=== PATIENT | male | born 1980 | race Two or more races ===

== ENCOUNTER 2017-02-26 03:04 | Emergency (ER) | payer MEDICAID ==
[~2017-02-26] VITALS: Ht 170.2 cm; Wt 105.2 kg
[2017-02-26] MEDS ORDERED: METFORMIN HCL1000 M1 ORAL (03:14)
[2017-02-26 03:20] VITALS: BP 144/87
--- NOTE | 2017-02-26 03:31 | Emergency Room Report ---
History of Present Illness General Chief Complaint: Dyspnea/Respdistress Source: Patient Present Illness HPI Patient 36-year-old male presented after increased difficulty breathing. Patient reported having increased anxiety. He states that he had recently stopped drinking alcohol. He reported having some epigastric burning sensation. He had not been vomiting. He states that he had been drinking beer up until approximately 1 day prior to arrival. The patient denies any rectal bleeding or hematemesis. He reports having a nonproductive cough Allergies: Coded Allergies: No Known Allergies (Unverified , 02/26/17) Patient History Past Medical History: see triage record Reviewed Nursing Documentation: PMH: Agreed, PSxH: Agreed Nursing Documentation-PMH Hx Diabetes: Yes Review of Systems All Other Systems: negative except mentioned in HPI Physical Exam Vital Signs Date Time Temp Pulse Resp B/P (MAP) Pulse Ox O2 Delivery O2 Flow Rate FiO2 02/26/17 03:07 98.1 85 16 144/87 98 Room Air Sp02 EP Interpretation: reviewed, normal General Appearance: normal inspection, well appearing, no apparent distress, alert, GCS 15 Head: atraumatic ENT: normal ENT inspection, hearing grossly normal, normal voice Neck: normal inspection, full range of motion, supple, no bony tend Respiratory: normal inspection, lungs clear, normal breath sounds, no respiratory distress, no retraction, no wheezing Cardiovascular #1: regular rate, rhythm, no edema Gastrointestinal: normal inspection, normal bowel sounds, non tender, soft, no guarding, no hernia Genitourinary: no CVA tenderness Musculoskeletal: normal inspection, back normal, normal range of motion Neurologic: normal inspection, alert, oriented x3, responsive, 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 Because of complexity of patient' s case laboratory testing and imaging studies were ordered.Laboratory testing was notable for low white blood count. The patient shows no active source of infection this time. The patient was given IV phenobarbital for presumed alcohol withdrawal. The patient is advised to follow up with primary care doctor in 1-2 days. Patient is advised to return if any worsening condition or if any changes in status that are concerning. This report is dictated with [employer] hand stoner software which may occasionally lead to discrepancies related to use of this software. Labs Test 02/26/17 03:50 White Blood Count 2.0 K/UL (4.8-10.8) Red Blood Count 3.93 M/UL (4.70-6.10) Hemoglobin 12.7 G/DL (14.2-18.0) Hematocrit 38.6 % (42.0-52.0) Mean Corpuscular Volume 98 FL (80-99) Mean Corpuscular Hemoglobin 32.2 PG (27.0-31.0) Mean Corpuscular Hemoglobin Concent 32.8 G/DL (32.0-36.0) Red Cell Distribution Width 13.4 % (11.6-14.8) Platelet Count 20 K/UL (150-450) Mean Platelet Volume 10.4 FL (6.5-10.1) Neutrophils (%) (Auto) % (45.0-75.0) Lymphocytes (%) (Auto) % (20.0-45.0) Monocytes (%) (Auto) % (1.0-10.0) Eosinophils (%) (Auto) % (0.0-3.0) Basophils (%) (Auto) % (0.0-2.0) Sodium Level 137 MMOL/L (136-145) Potassium Level 3.6 MMOL/L (3.5-5.1) Chloride Level 103 MMOL/L (98-107) Carbon Dioxide Level 28 MMOL/L (21-32) Anion Gap 7 mmol/L (5-15) Blood Urea Nitrogen 11 mg/dL (7-18) Creatinine 0.8 MG/DL (0.55-1.30) Estimat Glomerular Filtration Rate > 60 mL/min (>60) Glucose Level 198 MG/DL (74-106) Calcium Level 8.6 MG/DL (8.5-10.1) Total Bilirubin 1.5 MG/DL (0.2-1.0) Direct Bilirubin 0.4 MG/DL (0.0-0.3) Aspartate Amino Transf (AST/SGOT) 32 U/L (15-37) Alanine Aminotransferase (ALT/SGPT) 33 U/L (12-78) Alkaline Phosphatase 136 U/L (46-116) Total Protein 7.7 G/DL (6.4-8.2) Albumin 3.0 G/DL (3.4-5.0) Globulin 4.7 g/dL Albumin/Globulin Ratio 0.6 (1.0-2.7) Lipase 129 U/L (73-393) Serum Alcohol < 3 mg/dL EKG Diagnostic Results Rate: normal Rhythm: NSR ST Segments: no acute changes Rhythm Strip Diag. Results EP Interpretation: yes Rhythm: NSR, no PVC's, no ectopy Last Vital Signs Date Time Temp Pulse Resp B/P (MAP) Pulse Ox O2 Delivery O2 Flow Rate FiO2 02/26/17 03:07 98.1 85 16 144/87 98 Room Air Status: improved Disposition: HOME, SELF-CARE Condition: Stable Scripts Omeprazole Magnesium (PRILOSEC) 10 Mg Suspdr.pkt 10 MG ORAL DAILY, #30 PACKET Prov: Steve Lomeli 02/26/17 Referrals: NOT CHOSEN IPA/,REFERRING (PCP) Steve Lomeli Feb 26, 2017 03:31
[2017-02-26 04:01] LABS: MEAN CORPUSCULAR HEMOGLOBIN 32.2 PG (27.0-31.0); MEAN CORPUSCULAR HGB CONC 32.8 G/DL (32.0-36.0); MEAN CORPUSCULAR VOLUME 98 FL (80-99); MEAN PLATELET VOLUME 10.4 FL (6.5-10.1); PLATELET COUNT 20 K/UL (150-450); RED BLOOD COUNT 3.93 M/UL (4.70-6.10); RED CELL DISTRIBUTION WIDTH 13.4 % (11.6-14.8)
[2017-02-26 04:13] LABS: ANION GAP 7 mmol/L (5-15); CALCIUM 8.6 MG/DL (8.5-10.1); CARBON DIOXIDE 28 MMOL/L (21-32); CHLORIDE 103 MMOL/L (98-107); CREATININE 0.8 MG/DL (0.55-1.30); GLOMERULAR FILTRATION RATE > 60 mL/min (>60); POTASSIUM 3.6 MMOL/L (3.5-5.1); SODIUM 137 MMOL/L (136-145)
[2017-02-26 04:24] LABS: ALANINE AMINOTRANSFERASE 33 U/L (12-78); ALBUMIN/GLOBULIN RATIO 0.6 (1.0-2.7); ALCOHOL < 3 mg/dL; ASPARTATE AMINO TRANSFERASE 32 U/L (15-37); TOTAL PROTEIN 7.7 G/DL (6.4-8.2)
[2017-02-26 04:34] LABS: BILIRUBIN,DIRECT 0.4 MG/DL (0.0-0.3)
[2017-02-26 06:00] VITALS: BP 134/91
[2017-02-26] MEDS ORDERED: PRILOSEC10 M1 ORAL (06:02)
--- NOTE | 2017-02-26 18:13 | Cardiology Report ---
APPROVED REPORT EKG Measurement Heart [id number] Normal sinus rhythm Rightward axis Borderline ECG
== END 2017-02-26 06:05 | disposition home or self-care (01) ==
LOC: EMR 03:19
DX: F10.239 Alcohol dependence with withdrawal, unspecified (principal); D72.819 Decreased white blood cell count, unspecified; R06.00 Dyspnea, unspecified; E11.9 Type 2 diabetes mellitus without complications
CPT/HCPCS: 36415; 80053; 80329; 82248; 82962; 83690; 85025; 93005; 96374; 96376; 99284; J2560

== ENCOUNTER 2019-06-23 15:14 | Inpatient (IN) | payer MEDICAID ==
[~2019-06-23] VITALS: Ht 172.7 cm; Wt 93.0 kg
[~2019-06-23 15:14] MED LIST: METFORMIN HCL1000 M1 ORAL; PRILOSEC10 M1 ORAL
--- NOTE | 2019-06-23 15:40 | Emergency Room Report ---
History of Present Illness General Chief Complaint: Upper Respiratory Illness Source: Patient (Staci Conte) Present Illness HPI 38-year-old male with history of type 2 diabetes currently taking medication here complaining of 3 days of fever, cough and congestion shortness of breath. Patient reports that his roommate tested positive for coronavirus. 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 Has an oxygenation of 89% upon arrival and temperature of 102 F. Denies any chest pain or chest pain radiation, dizziness and headache. Denies tobacco smoking marijuana use. Peers to be in mild distress. Denies any wheezing. Denies any recent travel. Has not taken medication for symptom relief. Reports that his roommate was diagnosed with rhinovirus 3 days ago was having symptoms for a week prior to that. Patient started with all of his symptoms 3 days ago. (Staci Conte) Allergies: Coded Allergies: No Known Allergies (Unverified , 02/26/17) COVID-19 Screening Contact w/high risk pt: Yes Recent Travel to affected area: No Experienced COVID-19 symptoms?: Yes COVID-19 symptoms experienced: Cough (Staci Conte) Patient History Past Medical History: see triage record Past Surgical History: none Pertinent Family History: none Immunizations: UTD Reviewed Nursing Documentation: PMH: Agreed; PSxH: Agreed (Staci Conte) Nursing Documentation-PMH Past Medical History: No Stated History Hx Diabetes: Yes (Staci Conte) Review of Systems All Other Systems: negative except mentioned in HPI (Staci Conte) Physical Exam Vital Signs Date Time Temp Pulse Resp B/P (MAP) Pulse Ox O2 Delivery O2 Flow Rate FiO2 06/23/19 14:59 102.7 115 21 114/63 (80) 89 Room Air Sp02 EP Interpretation: abnormal - Elevated temperature and low o2 stat General Appearance: alert, non-toxic, mild distress Head: normocephalic, atraumatic Eyes: bilateral eye normal inspection, bilateral eye PERRL ENT: hearing grossly normal, normal pharynx, no angioedema, normal voice Neck: full range of motion, supple, thyroid normal Respiratory: chest non-tender, lungs clear, no rhonchi, no retraction, no wheezing Cardiovascular #1: regular rate, rhythm, no edema Gastrointestinal: non tender, soft Rectal: deferred Genitourinary: no CVA tenderness Neurologic: alert, motor strength/tone normal, oriented x3, sensory intact, responsive, speech normal Psychiatric: judgement/insight normal, memory normal, mood/affect normal, no suicidal/homicidal ideation Skin: no rash Lymphatic: no adenopathy (Staci Conte) Medical Decision Making PA Attestation All my diagnosis and treatment plans were reviewed ad discussed with my supervising physician Dr. Caba (Staci Conte) Diagnostic Impression: Primary Impression: Suspected COVID-19 virus infection Additional Impression: Pneumonia ER Course 38-year-old male with history of type 2 diabetes currently taking medication here complaining of 3 days of fever, cough and congestion shortness of breath. Patient reports that his roommate tested positive for coronavirus. 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 Has an oxygenation of 89% upon arrival and temperature of 102 F. Denies any chest pain or chest pain radiation, dizziness and headache. Denies tobacco smoking marijuana use. Peers to be in mild distress. Denies any wheezing. Denies any recent travel. Has not taken medication for symptom relief. Reports that his roommate was diagnosed with rhinovirus 3 days ago was having symptoms for a week prior to that. Patient started with all of his symptoms 3 days ago. Ddx considered but are not limited to: Coronavirus, ARDS, respiratory distress, bronchitis, PNA, URI viral, bacterial bronchitis Vital signs: are WNL, pt. is febrile H&PE are most consistent with: Coronavirus rule out respiratory distress ORDERS: Sepsis order set ED INTERVENTIONS: Oxygen, NS bolus Patient was admitted with diagnosis of COVID rule out hypoxia to Dr. Hobson under supervision of : Rosales pt stable at time of admission (Staci Conte) ER Course This patient was boarding in the emergency department during my shift. The patient had been admitted the previous evening with presumptive COVID-19 and pneumonia. The patient was in isolation on droplet precautions. The patient at one point did have significant tachypnea. I had the patient prone himself and he had significant improvement in his tachypnea. He maintained his oxygen saturations in the mid to high 90s during the care he received by myself during my shift. The patient is still pending bed availability. This patient was evaluated in the context of the global COVID-19 pandemic, which necessitated consideration that the patient might be at risk for infection with the [id number] virus that causes COVID-19. Institutional protocols in a log rhythms that pertain to the evaluation of patients at risk for COVID-19 and the state of rapid change based on information released by multiple regulatory bodies including the CDC and federal and state organizations. These policies and algorithms were followed during the patient' s care in the ED. (Chandni Baltazar DO) EKG Diagnostic Results Rate: tachycardiac Rhythm: other - tachy ST Segments: no acute changes Other Impression No acute ST changes (Staci Conte) Chest X-Ray Diagnostic Results Chest X-Ray Diagnostic Results : Chest X-Ray Ordered: Yes # of Views/Limited/Complete: 1 View Indication: Shortness of Breath EP Interpretation: Yes PA Xray: Interpretation reviewed, by supervising MD, and agrees with findings. Interpretation: other - Diffuse infiltrates Impression: Other - Diffuse infiltrates most likely COVID pneumonia Electronically Signed by: Staci Mendez PA-C (Staci Conte) Last Vital Signs Date Time Temp Pulse Resp B/P (MAP) Pulse Ox O2 Delivery O2 Flow Rate FiO2 06/23/19 14:59 102.7 115 21 114/63 (80) 89 Room Air (Staci Conte) Disposition: ADMITTED INPATIENT Condition: Stable Referrals: NOT CHOSEN IPA/,REFERRING (PCP) Staci Conte Jun 23, 2019 15:40 Chandni Baltazar DO Jun 24, 2019 13:31
[2019-06-23 16:01] VITALS: BP 119/65
[2019-06-23 16:27] LABS: INR 1.2 (0.9-1.1)
[2019-06-23 16:28] LABS: ANION GAP 10 mmol/L (5-15); BLOOD UREA NITROGEN 13 mg/dL (7-18); CALCIUM 8.3 MG/DL (8.5-10.1); CARBON DIOXIDE 25 MMOL/L (21-32); CHLORIDE 102 MMOL/L (98-107); POTASSIUM 3.7 MMOL/L (3.5-5.1); SODIUM 137 MMOL/L (136-145)
[2019-06-23] MEDS ORDERED: Azithromycin 500 MG in NS 275 ML IV ONE (16:30)
[2019-06-23] MEDS ORDERED: cefTRIAXone 1 GM in NS 55 ML IVPB ONE (16:30)
[2019-06-23] MEDS ORDERED: Azithromycin 250mg tab ORAL ONE (16:30)
[2019-06-23 16:44] LABS: ALANINE AMINOTRANSFERASE 41 U/L (12-78); ALBUMIN 2.7 G/DL (3.4-5.0); ALBUMIN/GLOBULIN RATIO 0.6 (1.0-2.7); ALKALINE PHOSPHATASE 138 U/L (46-116); ASPARTATE AMINO TRANSFERASE 73 U/L (15-37); BILIRUBIN,TOTAL 1.1 MG/DL (0.2-1.0); CKMB < 0.5 NG/ML (0.0-3.6); CREATINE KINASE 324 U/L (26-308)
[2019-06-23 16:45] LABS: BILIRUBIN,DIRECT 0.6 MG/DL (0.0-0.3)
--- NOTE | 2019-06-23 16:48 | Diagnostic Imaging Report ---
Indication: Shortness of breath Technique: One view of the chest Comparison: none Findings: There are bilateral mid and lower lung mostly peripheral infiltrates, with some medial patchy infiltrates also seen on the right heart size is upper limits normal. No effusions. Impression: Bilateral infiltrates, likely pneumonia. Correlate with clinical findings
[2019-06-23 16:49] LABS: APPEARANCE,URINE CLEAR; BILIRUBIN, URINE 1+ (NEGATIVE); GLUCOSE, URINE (UA) NEGATIVE (NEGATIVE); KETONES,URINE 2+ (NEGATIVE); LEUKOCYTE ESTERASE ,URINE 1+ (NEGATIVE); NITRITE,URINE POSITIVE (NEGATIVE); PH,URINE 6 (4.5-8.0); PROTEIN,URINE 2+ (NEGATIVE); UROBILINOGEN,URINE 8 MG/DL (0.0-1.0)
[2019-06-23 17:06] LABS: HEMATOCRIT 35.1 % (42.0-52.0); HEMOGLOBIN 11.3 G/DL (14.2-18.0); MEAN CORPUSCULAR VOLUME 97 FL (80-99); PLATELET COUNT 13 K/UL (150-450); RED BLOOD COUNT 3.61 M/UL (4.70-6.10); RED CELL DISTRIBUTION WIDTH 14.2 % (11.6-14.8); WHITE BLOOD COUNT 2.2 K/UL (4.8-10.8)
[2019-06-23 17:08] LABS: COLOR,URINE YELLOW
[2019-06-23 18:00] VITALS: BP 129/67
[2019-06-23 21:30] VITALS: BP 101/54
[2019-06-23 23:40] VITALS: BP 106/64
[2019-06-24] VITALS (11 sets, daily range): BP systolic 97–132; BP diastolic 58–92
[2019-06-24] MEDS ORDERED: Acetaminophen 500mg (ES) tab ORAL PRN (00:45)
[2019-06-24] MEDS ORDERED: Hydroxychloroquine Fact Sheet MISC SCH (12:00)
[2019-06-24] MEDS ORDERED: cefTRIAXone 1 GM in NS 55 ML IVPB SCH ×2 (12:15→13:02)
[2019-06-24] MEDS ORDERED: Azithromycin 250mg tab ORAL SCH (12:15)
--- NOTE | 2019-06-24 14:27 | Consultation ---
History of Present Illness General Chief Complaint: Upper Respiratory Illness Present Illness Allergies: Coded Allergies: No Known Allergies (Unverified , 02/26/17) Medication History Scheduled Metformin Hcl* (Metformin Hcl*), 1,000 MG ORAL DAILY, (Reported) Omeprazole Magnesium (Prilosec), 10 MG ORAL DAILY Patient History Healthcare decision maker Resuscitation status Advanced Directive on File Physical Exam Last 24 Hour Vital Signs Date Time Temp Pulse Resp B/P (MAP) Pulse Ox O2 Delivery O2 Flow Rate FiO2 06/24/19 13:00 91 37 107/89 100 Nasal Cannula 2.0 06/24/19 11:45 99.0 93 38 111/90 100 Nasal Cannula 2.0 06/24/19 10:00 99.0 93 34 108/91 100 Nasal Cannula 2.0 06/24/19 08:00 99.2 92 21 97/92 100 Nasal Cannula 2.0 06/24/19 07:00 99.5 91 32 114/70 96 Nasal Cannula 2.0 06/24/19 06:30 86 25 117/73 97 Nasal Cannula 2.0 06/24/19 04:30 100.1 98 30 101/58 97 Nasal Cannula 2.0 06/24/19 02:30 100.1 06/24/19 01:40 101.1 100 30 119/74 96 Nasal Cannula 2.0 06/23/19 23:40 100.0 97 27 106/64 97 Nasal Cannula 2.0 06/23/19 21:30 100.9 96 25 101/54 96 Nasal Cannula 2.0 06/23/19 18:00 101.9 112 26 129/67 97 Nasal Cannula 2.0 06/23/19 16:10 102.0 06/23/19 16:01 102.6 115 26 119/65 94 Room Air 06/23/19 16:01 115 21 Room Air 06/23/19 14:59 102.7 115 21 114/63 (80) 89 Room Air Laboratory Tests Test 06/23/19 15:35 06/23/19 15:40 06/23/19 15:50 06/23/19 16:45 Prothrombin Time 12.7 SEC (9.30-11.50) H Prothromb Time International Ratio 1.2 (0.9-1.1) H Activated Partial Thromboplast Time 34 SEC (23-33) H Sodium Level 137 MMOL/L (136-145) Potassium Level 3.7 MMOL/L (3.5-5.1) Chloride Level 102 MMOL/L (98-107) Carbon Dioxide Level 25 MMOL/L (21-32) Anion Gap 10 mmol/L (5-15) Blood Urea Nitrogen 13 mg/dL (7-18) Creatinine 1.0 MG/DL (0.55-1.30) Estimat Glomerular Filtration Rate > 60 mL/min (>60) Glucose Level 128 MG/DL (74-106) H Lactic Acid Level 2.00 mmol/L (0.4-2.0) Calcium Level 8.3 MG/DL (8.5-10.1) L Total Bilirubin 1.1 MG/DL (0.2-1.0) H Direct Bilirubin 0.6 MG/DL (0.0-0.3) H Aspartate Amino Transf (AST/SGOT) 73 U/L (15-37) H Alanine Aminotransferase (ALT/SGPT) 41 U/L (12-78) Alkaline Phosphatase 138 U/L (46-116) H Total Creatine Kinase 324 U/L (26-308) H Creatine Kinase MB < 0.5 NG/ML (0.0-3.6) Creatine Kinase MB Relative Index 0.1 Troponin I 0.046 ng/mL (0.000-0.056) Pro-B-Type Natriuretic Peptide 25 pg/mL (0-125) Total Protein 7.5 G/DL (6.4-8.2) Albumin 2.7 G/DL (3.4-5.0) L Globulin 4.8 g/dL Albumin/Globulin Ratio 0.6 (1.0-2.7) L Arterial Blood pH 7.502 (7.350-7.450) Arterial Blood Partial Pressure CO2 26.8 mmHg (35.0-45.0) L Arterial Blood Partial Pressure O2 58.0 mmHg (75.0-100.0) L Arterial Blood HCO3 20.5 mmol/L (22.0-26.0) L Arterial Blood Oxygen Saturation 92.5 % (95-100) L Arterial Blood Base Excess -1.3 (-2-2) [place] Test Positive Urine Color Yellow Urine Appearance Clear Urine pH 6 (4.5-8.0) Urine Specific [place] 1.015 (1.005-1.035) Urine Protein 2+ (NEGATIVE) H Urine Glucose (UA) Negative (NEGATIVE) Urine Ketones 2+ (NEGATIVE) H Urine Blood 1+ (NEGATIVE) H Urine Nitrite Positive (NEGATIVE) H Urine Bilirubin 1+ (NEGATIVE) H Urine Ictotest Negative (NEGATIVE) Urine Urobilinogen 8 MG/DL (0.0-1.0) H Urine Leukocyte Esterase 1+ (NEGATIVE) H Urine RBC 2-4 /HPF (0 - 0) H Urine WBC 5-10 /HPF (0 - 0) H Urine Squamous Epithelial Cells None /LPF (NONE/OCC) Urine Bacteria Many /HPF (NONE) H Urine Opiates Screen Negative (NEGATIVE) Urine Barbiturates Screen Negative (NEGATIVE) Phencyclidine (PCP) Screen Negative (NEGATIVE) Urine Amphetamines Screen Negative (NEGATIVE) Urine Benzodiazepines Screen Negative (NEGATIVE) Urine Cocaine Screen Negative (NEGATIVE) Urine Marijuana (THC) Screen Negative (NEGATIVE) White Blood Count 2.2 K/UL (4.8-10.8) L Red Blood Count 3.61 M/UL (4.70-6.10) L Hemoglobin 11.3 G/DL (14.2-18.0) L Hematocrit 35.1 % (42.0-52.0) L Mean Corpuscular Volume 97 FL (80-99) Mean Corpuscular Hemoglobin 31.3 PG (27.0-31.0) H Mean Corpuscular Hemoglobin Concent 32.2 G/DL (32.0-36.0) Red Cell Distribution Width 14.2 % (11.6-14.8) Platelet Count 13 K/UL (150-450) L Mean Platelet Volume 12.1 FL (6.5-10.1) H Neutrophils (%) (Auto) % (45.0-75.0) Lymphocytes (%) (Auto) % (20.0-45.0) Monocytes (%) (Auto) % (1.0-10.0) Eosinophils (%) (Auto) % (0.0-3.0) Basophils (%) (Auto) % (0.0-2.0) Differential Total Cells Counted 100 Neutrophils % (Manual) 84 % (45-75) H Lymphocytes % (Manual) 14 % (20-45) L Monocytes % (Manual) 2 % (1-10) Eosinophils % (Manual) 0 % (0-3) Basophils % (Manual) 0 % (0-2) Band Neutrophils 0 % (0-8) Platelet Estimate Decreased L Platelet Morphology Normal Hypochromasia 1+ Anisocytosis Macrocytosis 1+ Test 06/24/19 04:00 Troponin I 0.049 ng/mL (0.000-0.056) C-Reactive Protein, Quantitative 12.9 mg/dL (0.00-0.90) H Microbiology Date/Time Source Procedure Growth Status 06/23/19 15:35 Nasal Nares - Final Complete 06/23/19 15:35 Nasal Nares - Final Complete 06/23/19 15:50 Urine,Clean Catch Urine Culture - Preliminary NO GROWTH Resulted Height (Feet): 5 Height (Inches): 8.00 Weight (Pounds): 232 Medications Current Medications Medications (Trade) Dose Ordered Sig/Quynh Route PRN Reason Start Time Stop Time Status Last Admin Dose Admin Acetaminophen (Tylenol) 650 mg Q4H PRN ORAL Mild Pain (Pain Scale 1-3) 06/24/19 12:00 07/24/19 11:59 Azithromycin 500 mg/Dextrose 275 ml @ 275 mls/hr Q24H IV 06/24/19 14:00 06/29/19 13:59 Ceftriaxone Sodium 1 gm/ Sodium Chloride 55 ml @ 110 mls/hr ONCE IVPB 06/24/19 13:02 06/24/19 23:59 Heparin Sodium (Porcine) (Heparin 5000 units/ml) 5,000 units EVERY 12 HOURS SUBQ 06/24/19 21:00 08/08/19 20:59 UNV Hydroxychloroquine Sulfate (Plaquenil) 200 mg BID ORAL 06/25/19 09:00 06/28/19 18:01 Hydroxychloroquine Sulfate (Plaquenil) 400 mg BID ORAL 06/24/19 12:30 06/24/19 21:01 Miscellaneous Medication (Plaquenil Fact Sheet) 1 ea ONCE MISC 06/24/19 12:00 06/24/19 18:01 Potassium Chloride/Sodium Chloride 1,000 ml @ 50 mls/hr Q20H IV 06/24/19 13:00 07/24/19 12:59 Assessment/Plan Assessment/Plan: Hematology Consultation REQ : Eitan Hobson RFC: Low plts and Pancytopenia DOS: 06/24/2019 HPI 38-year-old male with history of type 2 diabetes currently taking medication here complaining of 3 days of fever, cough and congestion shortness of breath. Patient reports that his roommate tested positive for coronavirus. 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 Has an oxygenation of 89% upon arrival and temperature of 102 F. Denies any chest pain or chest pain radiation, dizziness and headache. Denies tobacco smoking marijuana use. Peers to be in mild distress. Denies any wheezing. Denies any recent travel. Has not taken medication for symptom relief. Reports that his roommate was diagnosed with rhinovirus 3 days ago was having symptoms for a week prior to that. Patient started with all of his symptoms 3 days ago. Has severly low plts and coagulopathy and heme consulted to martine r/o chela as well Coded Allergies: No Known Allergies (Unverified , 02/26/17) COVID-19 Screening Contact w/high risk pt: Yes Recent Travel to affected area: No Experienced COVID-19 symptoms?: Yes COVID-19 symptoms experienced: Cough Patient History Past Medical History: see triage record Past Surgical History: none Pertinent Family History: none Immunizations: UTD Reviewed Nursing Documentation: PMH: Agreed; PSxH: Agreed Nursing Documentation-PMH Past Medical History: No Stated History Hx Diabetes: Yes ROS (review of systems): Constitutional: No fever, no chills, no night sweats, no fatigue Skin: No rashes, lumps, itchiness, dryness HEENT: No LATIF, ear ache, visual changes, double vision, nosebleeds Breasts: No lumps, pain, discharge Pulmonary: No cough, sputum, shortness of breath, coughing up blood Cardiovascular: No chest pain, tightness, palpitations, syncope, PND GI: No nausea, vomiting, diarrhea, melena, hematochezia, change in appetite, : No dysuria, frequency, urgency, urinary incontinence, foamy urine Musculoskeletal: No joint swelling or muscle pain, trauma, back pain Neurologic: No dizziness, fainting, seizures, changes in smell or taste Psychiatric: No nervousness, stress, or depression, anxiety, hallucinations Endocrine: No weight change, heat or cold intolerance, tremor, insomnia Physical Exam: Vitals: reviewed General: NAD HEENT: nc, at Neck: supple Chest: clear breath sounds bilaterally ++ rhonchi Cardiovascular: RRR, no s3, s4 Neuro: alert and oriented Labs: noted Imaging: reviewed Assessment and Recs: # Pancytopenia -- multiple etiologies could be related to underlying liver disease, medication-induced, infection versus viral syndrome versus underlying bone marrow cause, GIVEn coagulopathy concern for liver disease --> peripheral smear has been ordered and does not show significant abnormalities --> Medications have been reviewed --> Continue to monitor for improvement, trend cbc --> Hep panel and HIV have been ordered --> US abd ordered to r/o cirrhosis and hepatosplenomegaly --> reverse isolation if ANC is <2000 --> Give neupogen if ANC <1000 --> Transfuse if hgb <7, with 1 unit prbc --> consider bone marrow biopsy if no other causes are found # Anemia of chronic disease v myeosuppression --> hx of dm 2 as well, poorly controlled -> trend hgb as needed # Pneumonia --> per id r/o cpvid 19 --> hypoxemia --> roommate tested ++ for covid19 # Tachypenia with cxr --> Diffuse infiltrates most likely COVID pneumonia # Tachycardia likely dehydrated The timing of this note does not necessarily reflect the time of the patient was seen. Greatly appreciate consultation. Johan Melvin MD Jun 24, 2019 14:27
[2019-06-24] MEDS: Azithromycin 500 MG in D5W 275 ML IV SCH (16:14)
[2019-06-24] MEDS: NS w/KCl 20mEq 1000ml 1,000 ML IV SCH (17:33)
--- NOTE | 2019-06-24 19:14 | Consultation ---
DATE OF CONSULTATION: 06/24/2019 INFECTIOUS DISEASE CONSULTATION CONSULTING PHYSICIAN: Edmund Butler M.D. PRIMARY ATTENDING: Eitan Sharp M.D. REASON FOR CONSULT: Pneumonia, suspected COVID-19 disease. HISTORY OF PRESENT ILLNESS: This is a 38-year-old male admitted yesterday from home complaining of fever, cough, shortness of breath for 3 days before admission. The patient had a fever of 102 at the time of admission, decrease in O2 saturation to 89. His roommate was diagnosed with common cold 3 days ago and has symptoms for a week prior to that. PAST MEDICAL HISTORY: Significant for diabetes mellitus. MEDICATIONS: Sodium chloride and Tylenol. Got a dose of ceftriaxone and azithromycin yesterday. SOCIAL HISTORY: . Denies alcohol, drug abuse, or smoking. REVIEW OF SYSTEMS: Very limited. Has fever, dry cough, shortness of breath. PHYSICAL EXAMINATION: VITAL SIGNS: T-max 102.7, current temperature 99, pulse 93, blood pressure 108/91. GENERAL APPEARANCE: No acute distress. Overweight. HEAD AND NECK: [place] conjunctivae. HEART: Normal rate. LUNGS: Clear. ABDOMEN: Soft and nontender. EXTREMITIES: No edema. NEUROLOGIC: He is awake, alert, responsive. LABORATORY AND DIAGNOSTIC DATA: Sodium 137, potassium 3.7, chloride 102, bicarbonate 25, BUN 13, creatinine 1, glucose 128. Bilirubin 1.9, AST elevated, alkaline phosphatase is 138. CK is elevated at 324. Urine toxicology was negative. Blood gas showed hypoxemia with pO2 58, pCO2 26.8, bicarbonate 20.5. Chest x-ray showed bilateral infiltrates, likely pneumonia. IMPRESSION: Sepsis with tachycardia, fever, leukopenia. Patient has pneumonia, highly suspected of COVID-19. Has hypoxemic respiratory failure, diabetes mellitus. RECOMMENDATION: Continue with ceftriaxone and Zithromax. If the patient signs consent for use of hydroxychloroquine, we would give the patient hydroxychloroquine. At the end of my exam, I thank Dr. Sharp for involving me in the care of this patient. Edmund Butler M.D. DR: JESUS JOB#: [id number] CC: LUIS
--- NOTE | 2019-06-24 20:14 | Consultation ---
DATE OF CONSULTATION: 06/24/2019 PULMONARY CONSULTATION CONSULTING PHYSICIAN: Philip Ayon MD. HISTORY OF PRESENT ILLNESS: This is a 38-year-old male with history of diabetes mellitus, who came to the hospital with fever, cough, and chest congestion. He states that his roommate has tested positive for COVID-19. 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 The patient was hypoxic, but currently is saturating 94% on 2 L of oxygen. He was also febrile. The patient denies tobacco, marijuana, or alcohol usage. He denies any other medical conditions. He also reports that another roommate had a [id number] test positive as well. PAST MEDICAL HISTORY: Diabetes mellitus. ALLERGIES: None. PREVIOUS SURGERIES: None. HOME MEDICATIONS: None reported. REVIEW OF SYSTEMS: Denies any headaches, hematemesis, melena, or hematochezia. PHYSICAL EXAMINATION: GENERAL: Reveals a 38-year-old male. HEENT: Unremarkable. CHEST: Shows decreased breath sounds bilaterally. HEART: Normal heart sounds. ABDOMEN: Soft. EXTREMITIES: There is no edema. NEUROLOGIC: Nonfocal. PHYSICAL EXAMINATION: Vital signs show blood pressure of 110/90, heart rate is 94, respirations are 18, O2 saturation 100% on 2 L of oxygen, respirations are 28. LABORATORY AND DIAGNOSTIC DATA: X-ray of chest shows bilateral infiltrates suspicious for pneumonia. Lab results show white count 2.2, hemoglobin 11.3. Chemistries are unremarkable except glucose of 128. IMPRESSION: 1. Diabetes mellitus. 2. Bilateral pneumonia. 3. Suspect COVID-19 pneumonia. 4. Hypoxemia. DISCUSSION: Admit to the hospital. We will recommend initiation of treatment with fluid, azithromycin, and Plaquenil. Needs oxygen therapy. We will follow carefully. Continue isolation. Philip Ayon M.D. DR: Christin JOB#: [id number] CC:
[2019-06-24] MEDS ORDERED: Heparin 5000 units/ml inj SUBQ SCH (21:00)
[2019-06-25] VITALS: BP 106/69
--- NOTE | 2019-06-25 02:45 | History and Physical Report ---
DATE OF ADMISSION: 06/23/2019 HISTORY OF PRESENT ILLNESS: The patient looks very much like he has COVID on the x-ray with bilateral pneumonia, shortness of breath, and cough. Apparently, he has history of alcohol abuse in the past, has hypoxia, also has history of pancytopenia. COVID test was sent and admitted to the monitored bed. The patient has a couple days of fever, cough, congestion, and shortness of breath. Roommate is positive for coronavirus. He was hypoxic, had a temperature of 102. Denies any chest pain. Does have shortness of breath, weakness and fatigue and also cough. He is admitted to rule out COVID, known for pneumonia. PAST MEDICAL HISTORY: History of diabetes and possible history of alcohol abuse, GERD. MEDICATION: Metformin and omeprazole. ALLERGIES: No known allergies. PAST SURGICAL HISTORY: None. FAMILY HISTORY: Noncontributory. SOCIAL HISTORY: Denies history of smoking. Does history of drug abuse. Does have history of alcohol abuse. REVIEW OF SYSTEMS: HEENT: Denies headaches. Respiratory: Does have shortness of breath and cough for couple of days, and fever and chills as well. Gastrointestinal: Reports occasional heartburn. Extremities: Denies pain. BAIL AGENT: Denies change in speech pattern. Feels weak. PHYSICAL EXAMINATION: VITAL SIGNS: Temperature is 101.9, pulse is 106, blood pressure 132/74. HEENT: PERRLA. NECK: Supple. CHEST: Bibasilar rhonchi. CARDIOVASCULAR: Tachycardic. GASTROINTESTINAL: Soft. Positive bowel sounds. No organomegaly. EXTREMITIES: No edema. Reflexes are equal on both sides. Moves all four extremities. NEUROLOGIC: Generalized weakness. LABORATORY AND DIAGNOSTIC DATA: WBC of 2.2, hemoglobin 11.3, platelets of 13. ASSESSMENT AND PLAN: Patient looks very much like has COVID and was admitted to the monitored bed for rule out COVID pneumonia. We will wait for the swab result. Pancytopenia, respiratory insufficiency, pneumonia. I have consulted Dr. Johan Melvin, Dr. Philip Ayon, and Dr. Edmund Butler, for the management of the above-mentioned abnormalities and symptoms. Antibiotics per Dr. Edmund Butler. Again, this looks very much like the patient has COVID clinically. Ali Uriel Sharp DR: Kizzy JOB#: [id number] CC:
[2019-06-25 04:00] VITALS: BP 112/67
[2019-06-25 05:54] LABS: HEMOGLOBIN 11.2 G/DL (14.2-18.0); MEAN CORPUSCULAR VOLUME 92 FL (80-99); PLATELET COUNT 12 K/UL (150-450); RED BLOOD COUNT 3.46 M/UL (4.70-6.10); RED CELL DISTRIBUTION WIDTH 12.8 % (11.6-14.8)
[2019-06-25 06:24] LABS: WHITE BLOOD COUNT 1.9 K/UL (4.8-10.8)
[2019-06-25 06:27] LABS: ALANINE AMINOTRANSFERASE 26 U/L (12-78); ALBUMIN/GLOBULIN RATIO 0.5 (1.0-2.7); ALKALINE PHOSPHATASE 108 U/L (46-116); ANION GAP 6 mmol/L (5-15); ASPARTATE AMINO TRANSFERASE 55 U/L (15-37); BLOOD UREA NITROGEN 10 mg/dL (7-18); CALCIUM 7.7 MG/DL (8.5-10.1); CARBON DIOXIDE 25 MMOL/L (21-32); CHLORIDE 105 MMOL/L (98-107); CREATININE 0.7 MG/DL (0.55-1.30); POTASSIUM 3.8 MMOL/L (3.5-5.1); SODIUM 136 MMOL/L (136-145)
[2019-06-25 07:44] VITALS: BP 105/69
--- NOTE | 2019-06-25 10:44 | Infectious Diseases Prog Note ---
Assessment/Plan Assessment/Plan IMPRESSION: Sepsis with tachycardia, fever, leukopenia. Pneumonia with COVID-19. Hypoxemic respiratory failure, Diabetes mellitus. RECOMMENDATION: Continue with Hydroxychloroquine and Zithromax Check HIV status Subjective ROS Limited/Unobtainable: Yes Constitutional: Denies: fever Respiratory: Reports: dry cough, other - decreased Allergies: Coded Allergies: No Known Allergies (Unverified , 02/26/17) Objective Vital Signs Last 24 Hour Vital Signs Date Time Temp Pulse Resp B/P (MAP) Pulse Ox O2 Delivery O2 Flow Rate FiO2 06/25/19 07:44 98.1 84 21 105/69 (81) 90 06/25/19 07:44 84 06/25/19 04:00 99.6 99 22 112/67 (82) 92 06/25/19 04:00 94 06/25/19 04:00 40 06/25/19 00:00 89 06/25/19 00:00 99.1 92 18 106/69 (81) 92 06/25/19 00:00 40 06/24/19 21:00 Venturi Mask 8.0 06/24/19 20:00 98 06/24/19 20:00 3.0 06/24/19 19:40 Nasal Cannula 2.0 06/24/19 19:12 99.0 98 18 132/88 (103) 95 06/24/19 18:30 99.7 104 18 118/76 99 Room Air 06/24/19 17:30 100.7 107 103/70 94 Nasal Cannula 2.0 06/24/19 16:30 101.9 106 40 122/74 94 Nasal Cannula 2.0 06/24/19 13:00 91 37 107/89 100 Nasal Cannula 2.0 06/24/19 11:45 99.0 93 38 111/90 100 Nasal Cannula 2.0 Height (Feet): 5 Height (Inches): 8.00 Weight (Pounds): 205 General Appearance: no acute distress HEENT: mucous membranes moist Respiratory/Chest: lungs clear, other - oxygen by mask Cardiovascular: normal rate Abdomen: soft, non tender Extremities: no edema Neurologic/Psychiatric: alert, oriented x 3, responsive Microbiology Date/Time Source Procedure Growth Status 06/23/19 15:45 Blood Blood Culture - Preliminary NO GROWTH AFTER 24 HOURS Resulted 4/14/20 15:30 Blood Blood Culture - Preliminary NO GROWTH AFTER 24 HOURS Resulted 06/23/19 15:35 Nasopharynx Coronavirus COVID-19 PCR ([facility]) - Final Complete 06/23/19 15:35 Nasal Nares - Final Complete 06/23/19 15:35 Nasal Nares - Final Complete 06/23/19 15:50 Urine,Clean Catch Urine Culture - Preliminary Mixed Gram Positive Organism Resulted Laboratory Tests Test 06/25/19 04:20 White Blood Count 1.9 K/UL (4.8-10.8) *L Red Blood Count 3.46 M/UL (4.70-6.10) L Hemoglobin 11.2 G/DL (14.2-18.0) L Hematocrit 32.0 % (42.0-52.0) L Mean Corpuscular Volume 92 FL (80-99) Mean Corpuscular Hemoglobin 32.3 PG (27.0-31.0) H Mean Corpuscular Hemoglobin Concent 35.0 G/DL (32.0-36.0) Red Cell Distribution Width 12.8 % (11.6-14.8) Platelet Count 12 K/UL (150-450) L Mean Platelet Volume 12.6 FL (6.5-10.1) H Neutrophils (%) (Auto) % (45.0-75.0) Lymphocytes (%) (Auto) % (20.0-45.0) Monocytes (%) (Auto) % (1.0-10.0) Eosinophils (%) (Auto) % (0.0-3.0) Basophils (%) (Auto) % (0.0-2.0) Differential Total Cells Counted 100 Neutrophils % (Manual) 71 % (45-75) Lymphocytes % (Manual) 24 % (20-45) Monocytes % (Manual) 5 % (1-10) Eosinophils % (Manual) 0 % (0-3) Basophils % (Manual) 0 % (0-2) Band Neutrophils 0 % (0-8) Platelet Estimate Decreased L Platelet Morphology Normal Hypochromasia 1+ Anisocytosis 1+ Sodium Level 136 MMOL/L (136-145) Potassium Level 3.8 MMOL/L (3.5-5.1) Chloride Level 105 MMOL/L (98-107) Carbon Dioxide Level 25 MMOL/L (21-32) Anion Gap 6 mmol/L (5-15) Blood Urea Nitrogen 10 mg/dL (7-18) Creatinine 0.7 MG/DL (0.55-1.30) Estimat Glomerular Filtration Rate > 60 mL/min (>60) Glucose Level 131 MG/DL (74-106) H Calcium Level 7.7 MG/DL (8.5-10.1) L Total Bilirubin 1.0 MG/DL (0.2-1.0) Aspartate Amino Transf (AST/SGOT) 55 U/L (15-37) H Alanine Aminotransferase (ALT/SGPT) 26 U/L (12-78) Alkaline Phosphatase 108 U/L (46-116) Total Protein 6.1 G/DL (6.4-8.2) L Albumin 2.0 G/DL (3.4-5.0) L Globulin 4.1 g/dL Albumin/Globulin Ratio 0.5 (1.0-2.7) L Current Medications Medications (Trade) Dose Ordered Sig/Quynh Route PRN Reason Start Time Stop Time Status Last Admin Dose Admin Acetaminophen (Tylenol) 650 mg Q4H PRN ORAL Mild Pain (Pain Scale 1-3) 06/24/19 12:00 07/24/19 11:59 06/25/19 06:32 Azithromycin 500 mg/Dextrose 275 ml @ 275 mls/hr Q24H IV 06/24/19 14:00 06/29/19 13:59 06/24/19 16:14 Hydroxychloroquine Sulfate (Plaquenil) 200 mg BID ORAL 06/25/19 09:00 06/28/19 18:01 06/25/19 08:20 Potassium Chloride/Sodium Chloride 1,000 ml @ 50 mls/hr Q20H IV 06/24/19 13:00 07/24/19 12:59 06/24/19 17:33 Edmund Butler MD Jun 25, 2019 10:44
--- NOTE | 2019-06-25 11:26 | Hematology/Onc Progress Note ---
Assessment/Plan Assessment/Plan Assessment and Recs: # Pancytopenia -- multiple etiologies could be related to underlying liver disease, medication-induced, infection versus viral syndrome versus underlying bone marrow cause, GIVEn coagulopathy concern for liver disease/ETOH also COVID+ + --> peripheral smear has been ordered and does not show significant abnormalities --> Medications have been reviewed --> Continue to monitor for improvement, trend cbc --> Hep panel and HIV have been ordered --> US abd ordered to r/o cirrhosis and hepatosplenomegaly --> reverse isolation if ANC is <2000 --> Give neupogen if ANC <1000 --> Transfuse if hgb <7, with 1 unit prbc --> consider bone marrow biopsy if no other causes are found --> FFP and platelets ordered --> plt trend 13-->12 # Coagulopathy is related to underlying liver disease --> consider vitk 10mg sq # Anemia of chronic disease v myeosuppression --> hx of dm 2 as well, poorly controlled -> trend hgb as needed # Pneumonia --> per id r/o cpvid 19 --> hypoxemia --> roommate tested ++ for covid19 # Tachypenia with cxr --> Diffuse infiltrates most likely COVID pneumonia # Tachycardia likely dehydrated The timing of this note does not necessarily reflect the time of the patient was seen. Greatly appreciate consultation. Subjective Constitutional: Denies: no symptoms, chills, fever, malaise, weakness, other HEENT: Denies: no symptoms, eye pain, blurred vision, tearing, double vision, ear pain, ear discharge, nose pain, nose congestion, throat pain, throat swelling, mouth pain, mouth swelling, other Cardiovascular: Denies: no symptoms, chest pain, edema, irregular heart rate, lightheadedness, palpitations, syncope, other Respiratory: Denies: no symptoms, cough, shortness of breath, SOB with excertion, SOB at rest, sputum, wheezing, other Gastrointestinal/Abdominal: Denies: no symptoms, abdomen distended, abdominal pain, black stools, tarry stools, blood in stool, constipated, diarrhea, difficulty swallowing, nausea, poor appetite, poor fluid intake, rectal bleeding , vomiting, other Genitourinary: Denies: no symptoms, burning, discharge, frequency, flank pain, hematuria, incontinence, pain, urgency, other Neurologic/Psychiatric: Denies: no symptoms, anxiety, depressed, emotional problems, headache, numbness, paresthesia, pre-existing deficit, seizure, tingling, tremors, weakness, other Endocrine: Denies: no symptoms, excessive sweating, flushing, intolerance to cold, intolerance to heat, increased hunger, increased thirst, increased urine, unexplained weight gain, unexplained weight loss, other Hematologic/Lymphatic: Denies: no symptoms, anemia, easy bleeding, easy bruising, adenopathy, other Allergies: Coded Allergies: No Known Allergies (Unverified , 02/26/17) Subjective 06/24 labs have been reviewed, meds noted, no bleeding or chills, us abd pending , given platelets, ffp and dw Dr. Hobson Objective Objective Current Medications Medications (Trade) Dose Ordered Sig/Quynh Route PRN Reason Start Time Stop Time Status Last Admin Dose Admin Acetaminophen (Tylenol) 650 mg Q4H PRN ORAL Mild Pain (Pain Scale 1-3) 06/24/19 12:00 07/24/19 11:59 06/25/19 06:32 Azithromycin 500 mg/Dextrose 275 ml @ 275 mls/hr Q24H IV 06/24/19 14:00 06/29/19 13:59 06/24/19 16:14 Hydroxychloroquine Sulfate (Plaquenil) 200 mg BID ORAL 06/25/19 09:00 06/28/19 18:01 06/25/19 08:20 Potassium Chloride/Sodium Chloride 1,000 ml @ 50 mls/hr Q20H IV 06/24/19 13:00 07/24/19 12:59 06/24/19 17:33 Last 24 Hour Vital Signs Date Time Temp Pulse Resp B/P (MAP) Pulse Ox O2 Delivery O2 Flow Rate FiO2 06/25/19 09:00 Venturi Mask 06/25/19 07:44 98.1 84 21 105/69 (81) 90 06/25/19 07:44 84 06/25/19 04:00 99.6 99 22 112/67 (82) 92 06/25/19 04:00 94 06/25/19 04:00 40 06/25/19 00:00 89 06/25/19 00:00 99.1 92 18 106/69 (81) 92 06/25/19 00:00 40 06/24/19 21:00 Venturi Mask 8.0 06/24/19 20:00 98 06/24/19 20:00 3.0 06/24/19 19:40 Nasal Cannula 2.0 06/24/19 19:12 99.0 98 18 132/88 (103) 95 06/24/19 18:30 99.7 104 18 118/76 99 Room Air 06/24/19 17:30 100.7 107 103/70 94 Nasal Cannula 2.0 06/24/19 16:30 101.9 106 40 122/74 94 Nasal Cannula 2.0 06/24/19 13:00 91 37 107/89 100 Nasal Cannula 2.0 06/24/19 11:45 99.0 93 38 111/90 100 Nasal Cannula 2.0 06/24/19 10:00 99.0 93 34 108/91 100 Nasal Cannula 2.0 06/24/19 08:00 99.2 92 21 97/92 100 Nasal Cannula 2.0 06/24/19 07:00 99.5 91 32 114/70 96 Nasal Cannula 2.0 06/24/19 06:30 86 25 117/73 97 Nasal Cannula 2.0 06/24/19 04:30 100.1 98 30 101/58 97 Nasal Cannula 2.0 06/24/19 02:30 100.1 06/24/19 01:40 101.1 100 30 119/74 96 Nasal Cannula 2.0 06/23/19 23:40 100.0 97 27 106/64 97 Nasal Cannula 2.0 06/23/19 21:30 100.9 96 25 101/54 96 Nasal Cannula 2.0 06/23/19 18:00 101.9 112 26 129/67 97 Nasal Cannula 2.0 06/23/19 16:10 102.0 06/23/19 16:01 102.6 115 26 119/65 94 Room Air 06/23/19 16:01 115 21 Room Air 06/23/19 14:59 102.7 115 21 114/63 (80) 89 Room Air Intake and Output 06/24/19 06/25/19 19:00 07:00 Intake Total 690 ml 600 ml Output Total 300 ml Balance 690 ml 300 ml Intake Oral 310 ml IV Total 380 ml 600 ml Output Urine Total 300 ml # Voids 1 Labs Test 06/23/19 15:35 06/23/19 15:40 06/23/19 15:50 06/23/19 16:45 Prothrombin Time 12.7 SEC (9.30-11.50) Prothromb Time International Ratio 1.2 (0.9-1.1) Activated Partial Thromboplast Time 34 SEC (23-33) Sodium Level 137 MMOL/L (136-145) Potassium Level 3.7 MMOL/L (3.5-5.1) Chloride Level 102 MMOL/L (98-107) Carbon Dioxide Level 25 MMOL/L (21-32) Anion Gap 10 mmol/L (5-15) Blood Urea Nitrogen 13 mg/dL (7-18) Creatinine 1.0 MG/DL (0.55-1.30) Estimat Glomerular Filtration Rate > 60 mL/min (>60) Glucose Level 128 MG/DL (74-106) Lactic Acid Level 2.00 mmol/L (0.4-2.0) Calcium Level 8.3 MG/DL (8.5-10.1) Total Bilirubin 1.1 MG/DL (0.2-1.0) Direct Bilirubin 0.6 MG/DL (0.0-0.3) Aspartate Amino Transf (AST/SGOT) 73 U/L (15-37) Alanine Aminotransferase (ALT/SGPT) 41 U/L (12-78) Alkaline Phosphatase 138 U/L (46-116) Total Creatine Kinase 324 U/L (26-308) Creatine Kinase MB < 0.5 NG/ML (0.0-3.6) Creatine Kinase MB Relative Index 0.1 Troponin I 0.046 ng/mL (0.000-0.056) Pro-B-Type Natriuretic Peptide 25 pg/mL (0-125) Total Protein 7.5 G/DL (6.4-8.2) Albumin 2.7 G/DL (3.4-5.0) Globulin 4.8 g/dL Albumin/Globulin Ratio 0.6 (1.0-2.7) Arterial Blood pH 7.502 (7.350-7.450) Arterial Blood Partial Pressure CO2 26.8 mmHg (35.0-45.0) Arterial Blood Partial Pressure O2 58.0 mmHg (75.0-100.0) Arterial Blood HCO3 20.5 mmol/L (22.0-26.0) Arterial Blood Oxygen Saturation 92.5 % (95-100) Arterial Blood Base Excess -1.3 (-2-2) [place] Test Positive Urine Color Yellow Urine Appearance Clear Urine pH 6 (4.5-8.0) Urine Specific [place] 1.015 (1.005-1.035) Urine Protein 2+ (NEGATIVE) Urine Glucose (UA) Negative (NEGATIVE) Urine Ketones 2+ (NEGATIVE) Urine Blood 1+ (NEGATIVE) Urine Nitrite Positive (NEGATIVE) Urine Bilirubin 1+ (NEGATIVE) Urine Ictotest Negative (NEGATIVE) Urine Urobilinogen 8 MG/DL (0.0-1.0) Urine Leukocyte Esterase 1+ (NEGATIVE) Urine RBC 2-4 /HPF (0 - 0) Urine WBC 5-10 /HPF (0 - 0) Urine Squamous Epithelial Cells None /LPF (NONE/OCC) Urine Bacteria Many /HPF (NONE) Urine Opiates Screen Negative (NEGATIVE) Urine Barbiturates Screen Negative (NEGATIVE) Phencyclidine (PCP) Screen Negative (NEGATIVE) Urine Amphetamines Screen Negative (NEGATIVE) Urine Benzodiazepines Screen Negative (NEGATIVE) Urine Cocaine Screen Negative (NEGATIVE) Urine Marijuana (THC) Screen Negative (NEGATIVE) White Blood Count 2.2 K/UL (4.8-10.8) Red Blood Count 3.61 M/UL (4.70-6.10) Hemoglobin 11.3 G/DL (14.2-18.0) Hematocrit 35.1 % (42.0-52.0) Mean Corpuscular Volume 97 FL (80-99) Mean Corpuscular Hemoglobin 31.3 PG (27.0-31.0) Mean Corpuscular Hemoglobin Concent 32.2 G/DL (32.0-36.0) Red Cell Distribution Width 14.2 % (11.6-14.8) Platelet Count 13 K/UL (150-450) Mean Platelet Volume 12.1 FL (6.5-10.1) Neutrophils (%) (Auto) % (45.0-75.0) Lymphocytes (%) (Auto) % (20.0-45.0) Monocytes (%) (Auto) % (1.0-10.0) Eosinophils (%) (Auto) % (0.0-3.0) Basophils (%) (Auto) % (0.0-2.0) Differential Total Cells Counted 100 Neutrophils % (Manual) 84 % (45-75) Lymphocytes % (Manual) 14 % (20-45) Monocytes % (Manual) 2 % (1-10) Eosinophils % (Manual) 0 % (0-3) Basophils % (Manual) 0 % (0-2) Band Neutrophils 0 % (0-8) Platelet Estimate Decreased Platelet Morphology Normal Hypochromasia 1+ Anisocytosis Macrocytosis 1+ Test 06/24/19 04:00 06/25/19 04:20 Troponin I 0.049 ng/mL (0.000-0.056) C-Reactive Protein, Quantitative 12.9 mg/dL (0.00-0.90) White Blood Count 1.9 K/UL (4.8-10.8) Red Blood Count 3.46 M/UL (4.70-6.10) Hemoglobin 11.2 G/DL (14.2-18.0) Hematocrit 32.0 % (42.0-52.0) Mean Corpuscular Volume 92 FL (80-99) Mean Corpuscular Hemoglobin 32.3 PG (27.0-31.0) Mean Corpuscular Hemoglobin Concent 35.0 G/DL (32.0-36.0) Red Cell Distribution Width 12.8 % (11.6-14.8) Platelet Count 12 K/UL (150-450) Mean Platelet Volume 12.6 FL (6.5-10.1) Neutrophils (%) (Auto) % (45.0-75.0) Lymphocytes (%) (Auto) % (20.0-45.0) Monocytes (%) (Auto) % (1.0-10.0) Eosinophils (%) (Auto) % (0.0-3.0) Basophils (%) (Auto) % (0.0-2.0) Differential Total Cells Counted 100 Neutrophils % (Manual) 71 % (45-75) Lymphocytes % (Manual) 24 % (20-45) Monocytes % (Manual) 5 % (1-10) Eosinophils % (Manual) 0 % (0-3) Basophils % (Manual) 0 % (0-2) Band Neutrophils 0 % (0-8) Platelet Estimate Decreased Platelet Morphology Normal Hypochromasia 1+ Anisocytosis 1+ Sodium Level 136 MMOL/L (136-145) Potassium Level 3.8 MMOL/L (3.5-5.1) Chloride Level 105 MMOL/L (98-107) Carbon Dioxide Level 25 MMOL/L (21-32) Anion Gap 6 mmol/L (5-15) Blood Urea Nitrogen 10 mg/dL (7-18) Creatinine 0.7 MG/DL (0.55-1.30) Estimat Glomerular Filtration Rate > 60 mL/min (>60) Glucose Level 131 MG/DL (74-106) Calcium Level 7.7 MG/DL (8.5-10.1) Total Bilirubin 1.0 MG/DL (0.2-1.0) Aspartate Amino Transf (AST/SGOT) 55 U/L (15-37) Alanine Aminotransferase (ALT/SGPT) 26 U/L (12-78) Alkaline Phosphatase 108 U/L (46-116) Total Protein 6.1 G/DL (6.4-8.2) Albumin 2.0 G/DL (3.4-5.0) Globulin 4.1 g/dL Albumin/Globulin Ratio 0.5 (1.0-2.7) Height (Feet): 5 Height (Inches): 8.00 Weight (Pounds): 205 Objective Physical Exam: Vitals: reviewed General: NAD HEENT: nc, at Neck: supple Chest: clear breath sounds bilaterally ++ rhonchi Cardiovascular: RRR, no s3, s4 Neuro: alert and oriented Johan Melvin MD Jun 25, 2019 11:26
--- NOTE | 2019-06-25 11:41 | Pulmonology Progress Note ---
Assessment/Plan Assessment/Plan IMPRESSION: 1. Diabetes mellitus. 2. Bilateral pneumonia. 3. Suspect COVID-19 pneumonia. 4. Hypoxemia. DISCUSSION: Continue IV fluids, azithromycin, and Plaquenil. Continue oxygen therapy. I will follow carefully. Continue isolation. Philip Ayon M.D. Subjective Interval Events: On 40% VTM; comfortable Constitutional: Reports: no symptoms HEENT: Repors: no symptoms Respiratory: Reports: no symptoms Cardiovascular: Reports: no symptoms Gastrointestinal/Abdominal: Reports: no symptoms Genitourinary: Reports: no symptoms Allergies: Coded Allergies: No Known Allergies (Unverified , 02/26/17) Objective Last 24 Hour Vital Signs Date Time Temp Pulse Resp B/P (MAP) Pulse Ox O2 Delivery O2 Flow Rate FiO2 06/25/19 09:00 Venturi Mask 06/25/19 07:44 98.1 84 21 105/69 (81) 90 06/25/19 07:44 84 06/25/19 04:00 99.6 99 22 112/67 (82) 92 06/25/19 04:00 94 06/25/19 04:00 40 06/25/19 00:00 89 06/25/19 00:00 99.1 92 18 106/69 (81) 92 06/25/19 00:00 40 06/24/19 21:00 Venturi Mask 8.0 06/24/19 20:00 98 06/24/19 20:00 3.0 06/24/19 19:40 Nasal Cannula 2.0 06/24/19 19:12 99.0 98 18 132/88 (103) 95 06/24/19 18:30 99.7 104 18 118/76 99 Room Air 06/24/19 17:30 100.7 107 103/70 94 Nasal Cannula 2.0 06/24/19 16:30 101.9 106 40 122/74 94 Nasal Cannula 2.0 06/24/19 13:00 91 37 107/89 100 Nasal Cannula 2.0 06/24/19 11:45 99.0 93 38 111/90 100 Nasal Cannula 2.0 Intake and Output 06/24/19 06/25/19 19:00 07:00 Intake Total 690 ml 600 ml Output Total 300 ml Balance 690 ml 300 ml Intake Oral 310 ml IV Total 380 ml 600 ml Output Urine Total 300 ml # Voids 1 General Appearance: no acute distress HEENT: normocephalic Respiratory/Chest: chest wall non-tender, lungs clear Cardiovascular: normal peripheral pulses Abdomen: normal bowel sounds Extremities: no cyanosis Microbiology Date/Time Source Procedure Growth Status 06/23/19 15:45 Blood Blood Culture - Preliminary NO GROWTH AFTER 24 HOURS Resulted 06/23/19 15:30 Blood Blood Culture - Preliminary NO GROWTH AFTER 24 HOURS Resulted 06/23/19 15:35 Nasopharynx Coronavirus COVID-19 PCR ([facility]) - Final Complete 06/23/19 15:35 Nasal Nares - Final Complete 06/23/19 15:35 Nasal Nares - Final Complete 06/23/19 15:50 Urine,Clean Catch Urine Culture - Preliminary Mixed Gram Positive Organism Resulted Laboratory Tests 06/25/19 04:20: White Blood Count 1.9*L, Red Blood Count 3.46L, Hemoglobin 11.2L, Hematocrit 32.0L, Mean Corpuscular Volume 92, Mean Corpuscular Hemoglobin 32.3H, Mean Corpuscular Hemoglobin Concent 35.0, Red Cell Distribution Width 12.8, Platelet Count 12L, Mean Platelet Volume 12.6H, Neutrophils (%) (Auto) , Lymphocytes (%) (Auto) , Monocytes (%) (Auto) , Eosinophils (%) (Auto) , Basophils (%) (Auto) , Differential Total Cells Counted 100, Neutrophils % (Manual) 71, Lymphocytes % ( Manual) 24, Monocytes % (Manual) 5, Eosinophils % (Manual) 0, Basophils % ( Manual) 0, Band Neutrophils 0, Platelet Estimate DecreasedL, Platelet Morphology Normal, Hypochromasia 1+, Anisocytosis 1+, Sodium Level 136, Potassium Level 3.8, Chloride Level 105, Carbon Dioxide Level 25, Anion Gap 6, Blood Urea Nitrogen 10, Creatinine 0.7, Estimat Glomerular Filtration Rate > 60 , Glucose Level 131H, Calcium Level 7.7L, Total Bilirubin 1.0, Aspartate Amino Transf (AST/SGOT) 55H, Alanine Aminotransferase (ALT/SGPT) 26, Alkaline Phosphatase 108, Total Protein 6.1L, Albumin 2.0L, Globulin 4.1, Albumin/ Globulin Ratio 0.5L Current Medications Medications (Trade) Dose Ordered Sig/Quynh Route PRN Reason Start Time Stop Time Status Last Admin Dose Admin Acetaminophen (Tylenol) 650 mg Q4H PRN ORAL Mild Pain (Pain Scale 1-3) 06/24/19 12:00 07/24/19 11:59 06/25/19 06:32 Azithromycin 500 mg/Dextrose 275 ml @ 275 mls/hr Q24H IV 06/24/19 14:00 06/29/19 13:59 06/24/19 16:14 Hydroxychloroquine Sulfate (Plaquenil) 200 mg BID ORAL 06/25/19 09:00 06/28/19 18:01 06/25/19 08:20 Potassium Chloride/Sodium Chloride 1,000 ml @ 50 mls/hr Q20H IV 06/24/19 13:00 07/24/19 12:59 06/24/19 17:33 Philip Ayon MD Jun 25, 2019 11:41
[2019-06-25 12:00] VITALS: BP 115/71
[2019-06-25] MEDS: NS w/KCl 20mEq 1000ml 1,000 ML IV SCH (13:59)
[2019-06-25] MEDS: Azithromycin 500 MG in D5W 275 ML IV SCH (13:59)
[2019-06-25 16:00] VITALS: BP 120/67
[2019-06-25 20:00] VITALS: BP 119/64
--- NOTE | 2019-06-25 20:34 | General Progress Note ---
Assessment/Plan Status: progressing Assessment/Plan: afebrile sob pna resp insuff r/o covid s/p hypoxic Subjective ROS Limited/Unobtainable: Yes Allergies: Coded Allergies: No Known Allergies (Unverified , 02/26/17) Objective Last 24 Hour Vital Signs Date Time Temp Pulse Resp B/P (MAP) Pulse Ox O2 Delivery O2 Flow Rate FiO2 06/25/19 16:00 98.0 69 22 120/67 (84) 92 06/25/19 16:00 98 06/25/19 12:00 97.9 93 20 115/71 (86) 93 06/25/19 11:31 97 06/25/19 09:00 Venturi Mask 06/25/19 07:44 98.1 84 21 105/69 (81) 90 06/25/19 07:44 84 06/25/19 04:00 99.6 99 22 112/67 (82) 92 06/25/19 04:00 94 06/25/19 04:00 40 06/25/19 00:00 89 06/25/19 00:00 99.1 92 18 106/69 (81) 92 06/25/19 00:00 40 06/24/19 21:00 Venturi Mask 8.0 Intake and Output 06/24/19 06/25/19 19:00 07:00 Intake Total 690 ml 600 ml Output Total 300 ml Balance 690 ml 300 ml Intake Oral 310 ml IV Total 380 ml 600 ml Output Urine Total 300 ml # Voids 1 Laboratory Tests 06/25/19 04:20: White Blood Count 1.9*L, Red Blood Count 3.46L, Hemoglobin 11.2L, Hematocrit 32.0L, Mean Corpuscular Volume 92, Mean Corpuscular Hemoglobin 32.3H, Mean Corpuscular Hemoglobin Concent 35.0, Red Cell Distribution Width 12.8, Platelet Count 12L, Mean Platelet Volume 12.6H, Neutrophils (%) (Auto) , Lymphocytes (%) (Auto) , Monocytes (%) (Auto) , Eosinophils (%) (Auto) , Basophils (%) (Auto) , Differential Total Cells Counted 100, Neutrophils % (Manual) 71, Lymphocytes % ( Manual) 24, Monocytes % (Manual) 5, Eosinophils % (Manual) 0, Basophils % ( Manual) 0, Band Neutrophils 0, Platelet Estimate DecreasedL, Platelet Morphology Normal, Hypochromasia 1+, Anisocytosis 1+, Sodium Level 136, Potassium Level 3.8, Chloride Level 105, Carbon Dioxide Level 25, Anion Gap 6, Blood Urea Nitrogen 10, Creatinine 0.7, Estimat Glomerular Filtration Rate > 60 , Glucose Level 131H, Calcium Level 7.7L, Total Bilirubin 1.0, Aspartate Amino Transf (AST/SGOT) 55H, Alanine Aminotransferase (ALT/SGPT) 26, Alkaline Phosphatase 108, Total Protein 6.1L, Albumin 2.0L, Globulin 4.1, Albumin/ Globulin Ratio 0.5L Height (Feet): 5 Height (Inches): 8.00 Weight (Pounds): 205 Eitan Sharp MD Jun 25, 2019 20:34
[2019-06-26] VITALS: BP 119/73
[2019-06-26 04:00] VITALS: BP 125/73
[2019-06-26] MEDS: NS w/KCl 20mEq 1000ml 1,000 ML IV SCH ×2 (05:12→22:07)
[2019-06-26 08:00] VITALS: BP 126/69
[2019-06-26 10:16] LABS: HEMATOCRIT 34.4 % (42.0-52.0); HEMOGLOBIN 11.7 G/DL (14.2-18.0); MEAN CORPUSCULAR VOLUME 92 FL (80-99); RED BLOOD COUNT 3.75 M/UL (4.70-6.10); WHITE BLOOD COUNT 1.8 K/UL (4.8-10.8)
[2019-06-26 10:17] LABS: PLATELET COUNT 15 K/UL (150-450); RED CELL DISTRIBUTION WIDTH 12.8 % (11.6-14.8)
--- NOTE | 2019-06-26 10:18 | Diagnostic Imaging Report ---
Indication: Reason For Exam: ABD PAIN Technique: Caal-scale and duplex images of the upper abdomen were obtained Comparison: Findings: Exam somewhat technically limited, patient difficult to scan per technologist Gallbladder demonstrates wall thickening, but no stones or pericholecystic fluid Sonographic Kirby's sign is negative. Common bile duct measures 3 mm in diameter. No intrahepatic biliary ductal dilatation. Liver demonstrates coarsened echogenicity. Left hepatic lobe is not well seen due to bowel gas and body habitus Portal vein and hepatic veins are patent. Pancreas is obscured by bowel gas. Spleen is enlarged, long axis dimension 17.7 cm Left kidney measures 14.1 cm in length. Right kidney measures 11.9 cm length. Both kidneys demonstrate normal echogenicity. There is no hydronephrosis. No focal abnormality . Abdominal aorta is obscured by bowel gas . There is trace ascites fluid noted Impression: Coarsened hepatic echogenicity, consistent with hepatocellular disease, nonspecific as etiology No gallstones. However, gallbladder wall is thickened. Most likely related to hemodynamic derangements from hepatocellular disease, but possibility of acute acalculous cholecystitis should also be considered. Correlate with clinical findings, consider medicine about of biliary scanning for further evaluation as clinically indicated Splenomegaly Trace ascites Limited exam-note nonvisualization of the pancreas, abdominal aorta, and portions of the left hepatic lobe
--- NOTE | 2019-06-26 10:50 | Infectious Diseases Prog Note ---
Assessment/Plan Assessment/Plan IMPRESSION: Sepsis Pancytopenia Pneumonia with COVID-19. Hypoxemic respiratory failure, Diabetes mellitus. Hepatocellular disease Splenomegaly RECOMMENDATION: Continue with Hydroxychloroquine and Zithromax Negative HIV status Viral hepatitis panel Subjective ROS Limited/Unobtainable: Yes Constitutional: Denies: fever Respiratory: Reports: shortness of breath, dry cough Allergies: Coded Allergies: No Known Allergies (Unverified , 02/26/17) Objective Vital Signs Last 24 Hour Vital Signs Date Time Temp Pulse Resp B/P (MAP) Pulse Ox O2 Delivery O2 Flow Rate FiO2 06/26/19 08:59 Venturi Mask 8.0 06/26/19 08:00 98.2 110 22 126/69 (88) 90 06/26/19 07:44 106 06/26/19 04:00 100 06/26/19 04:00 98.5 100 20 125/73 (90) 99 06/26/19 00:00 93 06/26/19 00:00 97.8 98 20 119/73 (88) 93 06/25/19 21:00 Venturi Mask 8.0 06/25/19 20:00 98.1 102 22 119/64 (82) 90 06/25/19 20:00 99 06/25/19 16:00 98.0 69 22 120/67 (84) 92 06/25/19 16:00 98 06/25/19 12:00 97.9 93 20 115/71 (86) 93 06/25/19 11:31 97 Height (Feet): 5 Height (Inches): 8.00 Weight (Pounds): 205 HEENT: mucous membranes moist Respiratory/Chest: other - oxygen by venturi mask Cardiovascular: tachycardia Abdomen: soft, non tender Extremities: no edema Neurologic/Psychiatric: other - sleeping Microbiology Date/Time Source Procedure Growth Status 06/23/19 15:45 Blood Blood Culture - Preliminary NO GROWTH AFTER 24 HOURS Resulted 06/23/19 15:30 Blood Blood Culture - Preliminary NO GROWTH AFTER 24 HOURS Resulted 06/23/19 15:35 Nasopharynx Coronavirus COVID-19 PCR ([facility]) - Final Complete 06/23/19 15:35 Nasal Nares - Final Complete 06/23/19 15:35 Nasal Nares - Final Complete 06/23/19 15:50 Urine,Clean Catch Urine Culture - Preliminary Mixed Gram Positive Organism Resulted Laboratory Tests Test 06/26/19 04:30 06/26/19 04:38 White Blood Count 1.8 K/UL (4.8-10.8) *L Red Blood Count 3.75 M/UL (4.70-6.10) L Hemoglobin 11.7 G/DL (14.2-18.0) L Hematocrit 34.4 % (42.0-52.0) L Mean Corpuscular Volume 92 FL (80-99) Mean Corpuscular Hemoglobin 31.2 PG (27.0-31.0) H Mean Corpuscular Hemoglobin Concent 33.8 G/DL (32.0-36.0) Red Cell Distribution Width 12.8 % (11.6-14.8) Platelet Count 15 K/UL (150-450) L Mean Platelet Volume 11.6 FL (6.5-10.1) H Neutrophils (%) (Auto) % (45.0-75.0) Lymphocytes (%) (Auto) % (20.0-45.0) Monocytes (%) (Auto) % (1.0-10.0) Eosinophils (%) (Auto) % (0.0-3.0) Basophils (%) (Auto) % (0.0-2.0) Differential Total Cells Counted 100 Neutrophils % (Manual) 69 % (45-75) Lymphocytes % (Manual) 26 % (20-45) Monocytes % (Manual) 5 % (1-10) Eosinophils % (Manual) 0 % (0-3) Basophils % (Manual) 0 % (0-2) Band Neutrophils 0 % (0-8) Platelet Estimate Decreased L Platelet Morphology Normal Red Blood Cell Morphology Normal HIV (1&2) Antibody Rapid Negative (NEGATIVE) Current Medications Medications (Trade) Dose Ordered Sig/Quynh Route PRN Reason Start Time Stop Time Status Last Admin Dose Admin Acetaminophen (Tylenol) 650 mg Q4H PRN ORAL Mild Pain (Pain Scale 1-3) 06/24/19 12:00 07/24/19 11:59 06/25/19 06:32 Azithromycin 500 mg/Dextrose 275 ml @ 275 mls/hr Q24H IV 06/24/19 14:00 06/29/19 13:59 06/25/19 13:59 Hydroxychloroquine Sulfate (Plaquenil) 200 mg BID ORAL 06/25/19 09:00 06/28/19 18:01 06/26/19 08:34 Potassium Chloride/Sodium Chloride 1,000 ml @ 50 mls/hr Q20H IV 06/24/19 13:00 07/24/19 12:59 06/26/19 05:12 Edmund Butler MD Jun 26, 2019 10:49
--- NOTE | 2019-06-26 11:07 | Pulmonology Progress Note ---
Assessment/Plan Assessment/Plan IMPRESSION: 1. Diabetes mellitus. 2. Bilateral pneumonia. 3. Confirmed COVID-19 pneumonia. 4. Hypoxemia. DISCUSSION: Continue IV fluids, azithromycin, and Plaquenil. Continue oxygen therapy. I will follow carefully. Continue isolation. Philip Ayon M.D. Subjective Interval Events: None new Constitutional: Reports: no symptoms HEENT: Repors: no symptoms Respiratory: Reports: no symptoms Cardiovascular: Reports: no symptoms Gastrointestinal/Abdominal: Reports: no symptoms Genitourinary: Reports: no symptoms Allergies: Coded Allergies: No Known Allergies (Unverified , 02/26/17) Objective Last 24 Hour Vital Signs Date Time Temp Pulse Resp B/P (MAP) Pulse Ox O2 Delivery O2 Flow Rate FiO2 06/26/19 08:59 Venturi Mask 8.0 06/26/19 08:00 98.2 110 22 126/69 (88) 90 06/26/19 07:44 106 06/26/19 04:00 100 06/26/19 04:00 98.5 100 20 125/73 (90) 99 06/26/19 00:00 93 06/26/19 00:00 97.8 98 20 119/73 (88) 93 06/25/19 21:00 Venturi Mask 8.0 06/25/19 20:00 98.1 102 22 119/64 (82) 90 06/25/19 20:00 99 06/25/19 16:00 98.0 69 22 120/67 (84) 92 06/25/19 16:00 98 06/25/19 12:00 97.9 93 20 115/71 (86) 93 06/25/19 11:31 97 Intake and Output 06/25/19 06/26/19 19:00 07:00 Intake Total 450 ml 660 ml Balance 450 ml 660 ml Intake Oral 120 ml IV Total 250 ml 540 ml Blood Product 200 ml # Voids 1 1 # Bowel Movements 2 General Appearance: no acute distress HEENT: normocephalic Respiratory/Chest: chest wall non-tender, lungs clear Cardiovascular: normal peripheral pulses, normal rate Abdomen: normal bowel sounds Extremities: no cyanosis Microbiology Date/Time Source Procedure Growth Status 06/23/19 15:45 Blood Blood Culture - Preliminary NO GROWTH AFTER 24 HOURS Resulted 06/23/19 15:30 Blood Blood Culture - Preliminary NO GROWTH AFTER 24 HOURS Resulted 06/23/19 15:35 Nasopharynx Coronavirus COVID-19 PCR ([facility]) - Final Complete 06/23/19 15:35 Nasal Nares - Final Complete 06/23/19 15:35 Nasal Nares - Final Complete 06/23/19 15:50 Urine,Clean Catch Urine Culture - Preliminary Mixed Gram Positive Organism Resulted Laboratory Tests 06/26/19 04:30: White Blood Count 1.8*L, Red Blood Count 3.75L, Hemoglobin 11.7L, Hematocrit 34.4L, Mean Corpuscular Volume 92, Mean Corpuscular Hemoglobin 31.2H, Mean Corpuscular Hemoglobin Concent 33.8, Red Cell Distribution Width 12.8, Platelet Count 15L, Mean Platelet Volume 11.6H, Neutrophils (%) (Auto) , Lymphocytes (%) (Auto) , Monocytes (%) (Auto) , Eosinophils (%) (Auto) , Basophils (%) (Auto) , Differential Total Cells Counted 100, Neutrophils % (Manual) 69, Lymphocytes % ( Manual) 26, Monocytes % (Manual) 5, Eosinophils % (Manual) 0, Basophils % ( Manual) 0, Band Neutrophils 0, Platelet Estimate DecreasedL, Platelet Morphology Normal, Red Blood Cell Morphology Normal 06/26/19 04:38: HIV (1&2) Antibody Rapid Negative Current Medications Medications (Trade) Dose Ordered Sig/Quynh Route PRN Reason Start Time Stop Time Status Last Admin Dose Admin Acetaminophen (Tylenol) 650 mg Q4H PRN ORAL Mild Pain (Pain Scale 1-3) 06/24/19 12:00 07/24/19 11:59 06/25/19 06:32 Azithromycin 500 mg/Dextrose 275 ml @ 275 mls/hr Q24H IV 06/24/19 14:00 06/29/19 13:59 06/25/19 13:59 Hydroxychloroquine Sulfate (Plaquenil) 200 mg 0900,2100 ORAL 06/26/19 21:00 06/28/19 21:01 Potassium Chloride/Sodium Chloride 1,000 ml @ 50 mls/hr Q20H IV 06/24/19 13:00 07/24/19 12:59 06/26/19 05:12 Philip Ayon MD Jun 26, 2019 11:07
[2019-06-26 12:00] VITALS: BP 117/76
--- NOTE | 2019-06-26 13:00 | Hematology/Onc Progress Note ---
Assessment/Plan Assessment/Plan Assessment and Recs: # Pancytopenia -- multiple etiologies could be related to underlying liver disease, medication-induced, infection versus viral syndrome versus underlying bone marrow cause, GIVEn coagulopathy concern for liver disease/ETOH also COVID+ + --> peripheral smear has been ordered and does not show significant abnormalities --> Medications have been reviewed --> Continue to monitor for improvement, trend cbc --> Hep panel pending and HIV negative --> US abd: Coarsened hepatic echogenicity, consistent with hepatocellular disease. Splenomegaly++ --> reverse isolation if ANC is <2000 --> Give neupogen if ANC <1000 --> Transfuse if hgb <7, with 1 unit prbc --> consider bone marrow biopsy if no other causes are found --> FFP and platelets ordered --> plt trend 13-->12-->15 --> wbc trend: 1.8 # Coagulopathy is related to underlying liver disease --> consider vitk 10mg sq # Anemia of chronic disease v myeosuppression --> hx of dm 2 as well, poorly controlled -> trend hgb as needed # Pneumonia --> per id r/o cpvid 19 --> hypoxemia --> roommate tested ++ for covid19 # Tachypenia with cxr --> Diffuse infiltrates most likely COVID pneumonia # Tachycardia likely dehydrated The timing of this note does not necessarily reflect the time of the patient was seen. Greatly appreciate consultation. Subjective Allergies: Coded Allergies: No Known Allergies (Unverified , 02/26/17) Subjective 06/24 labs have been reviewed, meds noted, no bleeding or chills, us abd pending , given platelets, ffp and dw Dr. Hobson 06/25 sdu, us abd and labs reviewed, hiv negative, v mask, on plaq/azithro Objective Objective Current Medications Medications (Trade) Dose Ordered Sig/Quynh Route PRN Reason Start Time Stop Time Status Last Admin Dose Admin Acetaminophen (Tylenol) 650 mg Q4H PRN ORAL Mild Pain (Pain Scale 1-3) 06/24/19 12:00 07/24/19 11:59 06/25/19 06:32 Azithromycin 500 mg/Dextrose 275 ml @ 275 mls/hr Q24H IV 06/24/19 14:00 06/29/19 13:59 06/25/19 13:59 Hydroxychloroquine Sulfate (Plaquenil) 200 mg 0900,2100 ORAL 06/26/19 21:00 06/28/19 21:01 Potassium Chloride/Sodium Chloride 1,000 ml @ 50 mls/hr Q20H IV 06/24/19 13:00 07/24/19 12:59 06/26/19 05:12 Last 24 Hour Vital Signs Date Time Temp Pulse Resp B/P (MAP) Pulse Ox O2 Delivery O2 Flow Rate FiO2 06/26/19 11:57 14.0 50 06/26/19 11:45 110 06/26/19 08:59 Venturi Mask 8.0 06/26/19 08:00 14.0 40 06/26/19 08:00 98.2 110 22 126/69 (88) 90 06/26/19 07:44 106 06/26/19 04:00 100 06/26/19 04:00 98.5 100 20 125/73 (90) 99 06/26/19 00:00 93 06/26/19 00:00 97.8 98 20 119/73 (88) 93 06/25/19 21:00 Venturi Mask 8.0 06/25/19 20:00 98.1 102 22 119/64 (82) 90 06/25/19 20:00 99 06/25/19 16:00 98.0 69 22 120/67 (84) 92 06/25/19 16:00 98 06/25/19 12:00 97.9 93 20 115/71 (86) 93 06/25/19 11:31 97 06/25/19 09:00 Venturi Mask 06/25/19 07:44 98.1 84 21 105/69 (81) 90 06/25/19 07:44 84 06/25/19 04:00 99.6 99 22 112/67 (82) 92 06/25/19 04:00 94 06/25/19 04:00 40 06/25/19 00:00 89 06/25/19 00:00 99.1 92 18 106/69 (81) 92 06/25/19 00:00 40 06/24/19 21:00 Venturi Mask 8.0 06/24/19 20:00 98 06/24/19 20:00 3.0 06/24/19 19:40 Nasal Cannula 2.0 06/24/19 19:12 99.0 98 18 132/88 (103) 95 06/24/19 18:30 99.7 104 18 118/76 99 Room Air 06/24/19 17:30 100.7 107 103/70 94 Nasal Cannula 2.0 06/24/19 16:30 101.9 106 40 122/74 94 Nasal Cannula 2.0 06/24/19 13:00 91 37 107/89 100 Nasal Cannula 2.0 Intake and Output 06/25/19 06/26/19 19:00 07:00 Intake Total 925 ml 660 ml Balance 925 ml 660 ml Intake Oral 120 ml IV Total 725 ml 540 ml Blood Product 200 ml # Voids 1 1 # Bowel Movements 2 Labs Test 06/23/19 15:35 06/23/19 15:40 06/23/19 15:50 06/23/19 16:45 Prothrombin Time 12.7 SEC (9.30-11.50) Prothromb Time International Ratio 1.2 (0.9-1.1) Activated Partial Thromboplast Time 34 SEC (23-33) Sodium Level 137 MMOL/L (136-145) Potassium Level 3.7 MMOL/L (3.5-5.1) Chloride Level 102 MMOL/L (98-107) Carbon Dioxide Level 25 MMOL/L (21-32) Anion Gap 10 mmol/L (5-15) Blood Urea Nitrogen 13 mg/dL (7-18) Creatinine 1.0 MG/DL (0.55-1.30) Estimat Glomerular Filtration Rate > 60 mL/min (>60) Glucose Level 128 MG/DL (74-106) Lactic Acid Level 2.00 mmol/L (0.4-2.0) Calcium Level 8.3 MG/DL (8.5-10.1) Total Bilirubin 1.1 MG/DL (0.2-1.0) Direct Bilirubin 0.6 MG/DL (0.0-0.3) Aspartate Amino Transf (AST/SGOT) 73 U/L (15-37) Alanine Aminotransferase (ALT/SGPT) 41 U/L (12-78) Alkaline Phosphatase 138 U/L (46-116) Total Creatine Kinase 324 U/L (26-308) Creatine Kinase MB < 0.5 NG/ML (0.0-3.6) Creatine Kinase MB Relative Index 0.1 Troponin I 0.046 ng/mL (0.000-0.056) Pro-B-Type Natriuretic Peptide 25 pg/mL (0-125) Total Protein 7.5 G/DL (6.4-8.2) Albumin 2.7 G/DL (3.4-5.0) Globulin 4.8 g/dL Albumin/Globulin Ratio 0.6 (1.0-2.7) Arterial Blood pH 7.502 (7.350-7.450) Arterial Blood Partial Pressure CO2 26.8 mmHg (35.0-45.0) Arterial Blood Partial Pressure O2 58.0 mmHg (75.0-100.0) Arterial Blood HCO3 20.5 mmol/L (22.0-26.0) Arterial Blood Oxygen Saturation 92.5 % (95-100) Arterial Blood Base Excess -1.3 (-2-2) [place] Test Positive Urine Color Yellow Urine Appearance Clear Urine pH 6 (4.5-8.0) Urine Specific [place] 1.015 (1.005-1.035) Urine Protein 2+ (NEGATIVE) Urine Glucose (UA) Negative (NEGATIVE) Urine Ketones 2+ (NEGATIVE) Urine Blood 1+ (NEGATIVE) Urine Nitrite Positive (NEGATIVE) Urine Bilirubin 1+ (NEGATIVE) Urine Ictotest Negative (NEGATIVE) Urine Urobilinogen 8 MG/DL (0.0-1.0) Urine Leukocyte Esterase 1+ (NEGATIVE) Urine RBC 2-4 /HPF (0 - 0) Urine WBC 5-10 /HPF (0 - 0) Urine Squamous Epithelial Cells None /LPF (NONE/OCC) Urine Bacteria Many /HPF (NONE) Urine Opiates Screen Negative (NEGATIVE) Urine Barbiturates Screen Negative (NEGATIVE) Phencyclidine (PCP) Screen Negative (NEGATIVE) Urine Amphetamines Screen Negative (NEGATIVE) Urine Benzodiazepines Screen Negative (NEGATIVE) Urine Cocaine Screen Negative (NEGATIVE) Urine Marijuana (THC) Screen Negative (NEGATIVE) White Blood Count 2.2 K/UL (4.8-10.8) Red Blood Count 3.61 M/UL (4.70-6.10) Hemoglobin 11.3 G/DL (14.2-18.0) Hematocrit 35.1 % (42.0-52.0) Mean Corpuscular Volume 97 FL (80-99) Mean Corpuscular Hemoglobin 31.3 PG (27.0-31.0) Mean Corpuscular Hemoglobin Concent 32.2 G/DL (32.0-36.0) Red Cell Distribution Width 14.2 % (11.6-14.8) Platelet Count 13 K/UL (150-450) Mean Platelet Volume 12.1 FL (6.5-10.1) Neutrophils (%) (Auto) % (45.0-75.0) Lymphocytes (%) (Auto) % (20.0-45.0) Monocytes (%) (Auto) % (1.0-10.0) Eosinophils (%) (Auto) % (0.0-3.0) Basophils (%) (Auto) % (0.0-2.0) Differential Total Cells Counted 100 Neutrophils % (Manual) 84 % (45-75) Lymphocytes % (Manual) 14 % (20-45) Monocytes % (Manual) 2 % (1-10) Eosinophils % (Manual) 0 % (0-3) Basophils % (Manual) 0 % (0-2) Band Neutrophils 0 % (0-8) Platelet Estimate Decreased Platelet Morphology Normal Hypochromasia 1+ Anisocytosis Macrocytosis 1+ Test 06/24/19 04:00 06/25/19 04:20 06/26/19 04:30 06/26/19 04:38 Troponin I 0.049 ng/mL (0.000-0.056) C-Reactive Protein, Quantitative 12.9 mg/dL (0.00-0.90) White Blood Count 1.9 K/UL (4.8-10.8) 1.8 K/UL (4.8-10.8) Red Blood Count 3.46 M/UL (4.70-6.10) 3.75 M/UL (4.70-6.10) Hemoglobin 11.2 G/DL (14.2-18.0) 11.7 G/DL (14.2-18.0) Hematocrit 32.0 % (42.0-52.0) 34.4 % (42.0-52.0) Mean Corpuscular Volume 92 FL (80-99) 92 FL (80-99) Mean Corpuscular Hemoglobin 32.3 PG (27.0-31.0) 31.2 PG (27.0-31.0) Mean Corpuscular Hemoglobin Concent 35.0 G/DL (32.0-36.0) 33.8 G/DL (32.0-36.0) Red Cell Distribution Width 12.8 % (11.6-14.8) 12.8 % (11.6-14.8) Platelet Count 12 K/UL (150-450) 15 K/UL (150-450) Mean Platelet Volume 12.6 FL (6.5-10.1) 11.6 FL (6.5-10.1) Neutrophils (%) (Auto) % (45.0-75.0) % (45.0-75.0) Lymphocytes (%) (Auto) % (20.0-45.0) % (20.0-45.0) Monocytes (%) (Auto) % (1.0-10.0) % (1.0-10.0) Eosinophils (%) (Auto) % (0.0-3.0) % (0.0-3.0) Basophils (%) (Auto) % (0.0-2.0) % (0.0-2.0) Differential Total Cells Counted 100 100 Neutrophils % (Manual) 71 % (45-75) 69 % (45-75) Lymphocytes % (Manual) 24 % (20-45) 26 % (20-45) Monocytes % (Manual) 5 % (1-10) 5 % (1-10) Eosinophils % (Manual) 0 % (0-3) 0 % (0-3) Basophils % (Manual) 0 % (0-2) 0 % (0-2) Band Neutrophils 0 % (0-8) 0 % (0-8) Platelet Estimate Decreased Decreased Platelet Morphology Normal Normal Hypochromasia 1+ Anisocytosis 1+ Sodium Level 136 MMOL/L (136-145) Potassium Level 3.8 MMOL/L (3.5-5.1) Chloride Level 105 MMOL/L (98-107) Carbon Dioxide Level 25 MMOL/L (21-32) Anion Gap 6 mmol/L (5-15) Blood Urea Nitrogen 10 mg/dL (7-18) Creatinine 0.7 MG/DL (0.55-1.30) Estimat Glomerular Filtration Rate > 60 mL/min (>60) Glucose Level 131 MG/DL (74-106) Calcium Level 7.7 MG/DL (8.5-10.1) Total Bilirubin 1.0 MG/DL (0.2-1.0) Aspartate Amino Transf (AST/SGOT) 55 U/L (15-37) Alanine Aminotransferase (ALT/SGPT) 26 U/L (12-78) Alkaline Phosphatase 108 U/L (46-116) Total Protein 6.1 G/DL (6.4-8.2) Albumin 2.0 G/DL (3.4-5.0) Globulin 4.1 g/dL Albumin/Globulin Ratio 0.5 (1.0-2.7) Red Blood Cell Morphology Normal HIV (1&2) Antibody Rapid Negative (NEGATIVE) Height (Feet): 5 Height (Inches): 8.00 Weight (Pounds): 205 Objective Physical Exam: Vitals: reviewed General: NAD HEENT: nc, at Neck: supple Chest: clear breath sounds bilaterally ++ rhonchi, vmask++ Cardiovascular: RRR, no s3, s4 Neuro: alert and oriented Johan Melvin MD Jun 26, 2019 13:00
[2019-06-26] MEDS: Azithromycin 500 MG in D5W 275 ML IV SCH (13:29)
[2019-06-26 15:39] VITALS: BP 120/86
[2019-06-26 20:00] VITALS: BP 119/75
--- NOTE | 2019-06-26 21:33 | General Progress Note ---
Assessment/Plan Problem List: (1) Leukopenia ICD Codes: D72.819 - Decreased white blood cell count, unspecified SNOMED: 56202243, 033931987 (2) Pneumonia ICD Codes: J18.9 - Pneumonia, unspecified organism SNOMED: 813834657 (3) Suspected COVID-19 virus infection ICD Codes: R68.89 - Other general symptoms and signs SNOMED: 589139074 Status: progressing Assessment/Plan: afebrile sob pna resp insuff is covid positive cough supportive therapy weak Subjective ROS Limited/Unobtainable: Yes Allergies: Coded Allergies: No Known Allergies (Unverified , 02/26/17) Objective Last 24 Hour Vital Signs Date Time Temp Pulse Resp B/P (MAP) Pulse Ox O2 Delivery O2 Flow Rate FiO2 06/26/19 20:00 99.5 116 20 119/75 (90) 83 06/26/19 16:00 101 06/26/19 16:00 14.0 45 06/26/19 15:39 98.6 101 20 120/86 (97) 93 06/26/19 14:43 99.0 06/26/19 14:00 99.0 06/26/19 12:00 100.4 109 20 117/76 (90) 90 06/26/19 11:57 14.0 50 06/26/19 11:45 110 06/26/19 08:59 Venturi Mask 8.0 06/26/19 08:00 14.0 40 06/26/19 08:00 98.2 110 22 126/69 (88) 90 06/26/19 07:44 106 06/26/19 04:00 100 06/26/19 04:00 98.5 100 20 125/73 (90) 99 06/26/19 00:00 93 06/26/19 00:00 97.8 98 20 119/73 (88) 93 Intake and Output 06/25/19 06/26/19 19:00 07:00 Intake Total 925 ml 660 ml Balance 925 ml 660 ml Intake Oral 120 ml IV Total 725 ml 540 ml Blood Product 200 ml # Voids 1 1 # Bowel Movements 2 Laboratory Tests 06/26/19 04:30: White Blood Count 1.8*L, Red Blood Count 3.75L, Hemoglobin 11.7L, Hematocrit 34.4L, Mean Corpuscular Volume 92, Mean Corpuscular Hemoglobin 31.2H, Mean Corpuscular Hemoglobin Concent 33.8, Red Cell Distribution Width 12.8, Platelet Count 15L, Mean Platelet Volume 11.6H, Neutrophils (%) (Auto) , Lymphocytes (%) (Auto) , Monocytes (%) (Auto) , Eosinophils (%) (Auto) , Basophils (%) (Auto) , Differential Total Cells Counted 100, Neutrophils % (Manual) 69, Lymphocytes % ( Manual) 26, Monocytes % (Manual) 5, Eosinophils % (Manual) 0, Basophils % ( Manual) 0, Band Neutrophils 0, Platelet Estimate DecreasedL, Platelet Morphology Normal, Red Blood Cell Morphology Normal 06/26/19 04:38: HIV (1&2) Antibody Rapid Negative Height (Feet): 5 Height (Inches): 8.00 Weight (Pounds): 205 Eitan Sharp MD Jun 26, 2019 21:33
[2019-06-27] VITALS: BP 126/93
[2019-06-27 04:00] VITALS: BP 121/70
[2019-06-27 08:00] VITALS: BP 129/63
[2019-06-27 08:31] LABS: HEMOGLOBIN 12.4 G/DL (14.2-18.0); MEAN CORPUSCULAR VOLUME 92 FL (80-99); PLATELET COUNT 20 K/UL (150-450); RED CELL DISTRIBUTION WIDTH 12.6 % (11.6-14.8)
[2019-06-27 08:33] LABS: WHITE BLOOD COUNT 2.1 K/UL (4.8-10.8)
[2019-06-27 09:12] LABS: ALANINE AMINOTRANSFERASE 30 U/L (12-78); ALBUMIN 2.1 G/DL (3.4-5.0); ALBUMIN/GLOBULIN RATIO 0.5 (1.0-2.7); ALKALINE PHOSPHATASE 147 U/L (46-116); ANION GAP 9 mmol/L (5-15); ASPARTATE AMINO TRANSFERASE 58 U/L (15-37); BILIRUBIN,TOTAL 2.2 MG/DL (0.2-1.0); BLOOD UREA NITROGEN 11 mg/dL (7-18); CALCIUM 7.9 MG/DL (8.5-10.1); CARBON DIOXIDE 22 MMOL/L (21-32); CHLORIDE 105 MMOL/L (98-107); CREATININE 0.9 MG/DL (0.55-1.30); POTASSIUM 4.3 MMOL/L (3.5-5.1); SODIUM 136 MMOL/L (136-145)
[2019-06-27 09:14] LABS: BILIRUBIN,DIRECT 1.3 MG/DL (0.0-0.3)
--- NOTE | 2019-06-27 10:38 | General Progress Note ---
Assessment/Plan Problem List: (1) Leukopenia ICD Codes: D72.819 - Decreased white blood cell count, unspecified SNOMED: 59158070, 471764868 (2) Pneumonia ICD Codes: J18.9 - Pneumonia, unspecified organism SNOMED: 768836633 (3) Suspected COVID-19 virus infection ICD Codes: R68.89 - Other general symptoms and signs SNOMED: 727294965 Status: progressing Assessment/Plan: severe thrombocytopenia and leukopenia per dr vargas pna resp insuff is covid positive cough supportive therapy weak Subjective ROS Limited/Unobtainable: Yes Allergies: Coded Allergies: No Known Allergies (Unverified , 02/26/17) Objective Last 24 Hour Vital Signs Date Time Temp Pulse Resp B/P (MAP) Pulse Ox O2 Delivery O2 Flow Rate FiO2 06/27/19 09:00 Venturi Mask 8.0 06/27/19 09:00 15.0 45 06/27/19 08:00 118 06/27/19 08:00 98.1 102 18 129/63 (85) 98 06/27/19 04:00 103 06/27/19 04:00 98.6 112 20 121/70 (87) 89 06/27/19 04:00 14.0 45 06/27/19 00:00 112 06/27/19 00:00 100.0 113 20 126/93 (104) 87 06/27/19 00:00 14.0 45 06/26/19 21:00 Venturi Mask 8.0 06/26/19 20:00 99.5 116 20 119/75 (90) 83 06/26/19 16:00 101 06/26/19 16:00 14.0 45 06/26/19 15:39 98.6 101 20 120/86 (97) 93 06/26/19 14:43 99.0 06/26/19 14:00 99.0 06/26/19 12:00 100.4 109 20 117/76 (90) 90 06/26/19 11:57 14.0 50 06/26/19 11:45 110 Intake and Output 06/26/19 06/27/19 19:00 07:00 Intake Total 500 ml Output Total 400 ml 700 ml Balance 100 ml -700 ml Intake Oral 500 ml Output Urine Total 400 ml 700 ml # Voids 1 # Bowel Movements 1 Laboratory Tests 06/27/19 08:10: White Blood Count 2.1*L, Red Blood Count 3.90L, Hemoglobin 12.4L, Hematocrit 36.0L, Mean Corpuscular Volume 92, Mean Corpuscular Hemoglobin 31.8H, Mean Corpuscular Hemoglobin Concent 34.4, Red Cell Distribution Width 12.6, Platelet Count 20L, Mean Platelet Volume 12.9H, Neutrophils (%) (Auto) , Lymphocytes (%) (Auto) , Monocytes (%) (Auto) , Eosinophils (%) (Auto) , Basophils (%) (Auto) , Neutrophils % (Manual) [Pending], Lymphocytes % (Manual) [Pending], Platelet Estimate [Pending], Platelet Morphology [Pending], Sodium Level 136, Potassium Level 4.3, Chloride Level 105, Carbon Dioxide Level 22, Anion Gap 9, Blood Urea Nitrogen 11, Creatinine 0.9, Estimat Glomerular Filtration Rate > 60, Glucose Level 172H, Calcium Level 7.9L, Total Bilirubin 2.2H, Direct Bilirubin 1.3H, Aspartate Amino Transf (AST/SGOT) 58H, Alanine Aminotransferase (ALT/SGPT) 30, Alkaline Phosphatase 147H, Total Protein 6.7, Albumin 2.1L, Globulin 4.6, Albumin/Globulin Ratio 0.5L, Hepatitis A IgM Antibody [Pending], Hepatitis B Surface Antigen [Pending], Hepatitis B Core IgM Antibody [Pending], Hepatitis C Antibody [Pending] Height (Feet): 5 Height (Inches): 8.00 Weight (Pounds): 205 Eitan Sharp MD Jun 27, 2019 10:38
[2019-06-27 11:20] VITALS: BP 127/69
[2019-06-27] MEDS ORDERED: TBO-Filgrastim 300 mcg/0.5ml SQ SCH (12:00)
--- NOTE | 2019-06-27 12:19 | Pulmonology Progress Note ---
Assessment/Plan Assessment/Plan IMPRESSION: 1. Diabetes mellitus. 2. Bilateral pneumonia. 3. Confirmed COVID-19 pneumonia. 4. Hypoxemia. DISCUSSION: Continue IV fluids, azithromycin, and Plaquenil. Continue oxygen therapy. I will follow carefully. Continue isolation. Currently on 45% ventimask Philip Ayon M.D. Subjective Interval Events: None new Constitutional: Reports: no symptoms HEENT: Repors: no symptoms Respiratory: Reports: no symptoms Cardiovascular: Reports: no symptoms Gastrointestinal/Abdominal: Reports: no symptoms Genitourinary: Reports: no symptoms Allergies: Coded Allergies: No Known Allergies (Unverified , 02/26/17) Objective Last 24 Hour Vital Signs Date Time Temp Pulse Resp B/P (MAP) Pulse Ox O2 Delivery O2 Flow Rate FiO2 06/27/19 11:20 97.8 84 19 127/69 (88) 97 06/27/19 09:00 Venturi Mask 8.0 06/27/19 09:00 15.0 45 06/27/19 08:00 118 06/27/19 08:00 98.1 102 18 129/63 (85) 98 06/27/19 04:00 103 06/27/19 04:00 98.6 112 20 121/70 (87) 89 06/27/19 04:00 14.0 45 06/27/19 00:00 112 06/27/19 00:00 100.0 113 20 126/93 (104) 87 06/27/19 00:00 14.0 45 06/26/19 21:00 Venturi Mask 8.0 06/26/19 20:00 99.5 116 20 119/75 (90) 83 06/26/19 16:00 101 06/26/19 16:00 14.0 45 06/26/19 15:39 98.6 101 20 120/86 (97) 93 06/26/19 14:43 99.0 06/26/19 14:00 99.0 Intake and Output 06/26/19 06/27/19 19:00 07:00 Intake Total 500 ml Output Total 400 ml 700 ml Balance 100 ml -700 ml Intake Oral 500 ml Output Urine Total 400 ml 700 ml # Voids 1 # Bowel Movements 1 General Appearance: no acute distress HEENT: normocephalic Respiratory/Chest: chest wall non-tender Cardiovascular: normal peripheral pulses Abdomen: normal bowel sounds Laboratory Tests 06/27/19 08:10: White Blood Count 2.1*L, Red Blood Count 3.90L, Hemoglobin 12.4L, Hematocrit 36.0L, Mean Corpuscular Volume 92, Mean Corpuscular Hemoglobin 31.8H, Mean Corpuscular Hemoglobin Concent 34.4, Red Cell Distribution Width 12.6, Platelet Count 20L, Mean Platelet Volume 12.9H, Neutrophils (%) (Auto) , Lymphocytes (%) (Auto) , Monocytes (%) (Auto) , Eosinophils (%) (Auto) , Basophils (%) (Auto) , Differential Total Cells Counted 100, Neutrophils % (Manual) 72, Lymphocytes % ( Manual) 19L, Monocytes % (Manual) 9, Eosinophils % (Manual) 0, Basophils % ( Manual) 0, Band Neutrophils 0, Platelet Estimate DecreasedL, Platelet Morphology Normal, Red Blood Cell Morphology Normal, Sodium Level 136, Potassium Level 4.3, Chloride Level 105, Carbon Dioxide Level 22, Anion Gap 9, Blood Urea Nitrogen 11, Creatinine 0.9, Estimat Glomerular Filtration Rate > 60 , Glucose Level 172H, Calcium Level 7.9L, Total Bilirubin 2.2H, Direct Bilirubin 1.3H, Aspartate Amino Transf (AST/SGOT) 58H, Alanine Aminotransferase (ALT/SGPT) 30, Alkaline Phosphatase 147H, Total Protein 6.7, Albumin 2.1L, Globulin 4.6, Albumin/Globulin Ratio 0.5L, Hepatitis A IgM Antibody [Pending], Hepatitis B Surface Antigen [Pending], Hepatitis B Core IgM Antibody [Pending], Hepatitis C Antibody [Pending] Current Medications Medications (Trade) Dose Ordered Sig/Quynh Route PRN Reason Start Time Stop Time Status Last Admin Dose Admin Acetaminophen (Tylenol) 650 mg Q4H PRN ORAL Mild Pain (Pain Scale 1-3) 06/24/19 12:00 07/24/19 11:59 06/26/19 13:30 Acetaminophen (Tylenol) 650 mg Q4H PRN ORAL Temp >100.5 06/26/19 15:00 07/26/19 14:59 Azithromycin 500 mg/Dextrose 275 ml @ 275 mls/hr Q24H IV 06/24/19 14:00 06/29/19 13:59 06/26/19 13:29 Hydroxychloroquine Sulfate (Plaquenil) 200 mg 0900,2100 ORAL 06/26/19 21:00 06/28/19 21:01 06/27/19 09:15 Potassium Chloride/Sodium Chloride 1,000 ml @ 50 mls/hr Q20H IV 06/24/19 13:00 07/24/19 12:59 06/26/19 22:07 Tbo-Filgrastim (Granix) 300 mcg ONCE SQ 06/27/19 12:00 06/27/19 13:00 06/27/19 12:06 Philip Ayon MD Jun 27, 2019 12:19
[2019-06-27] MEDS: Azithromycin 500 MG in D5W 275 ML IV SCH (14:00)
[2019-06-27 16:00] VITALS: BP 129/68
[2019-06-27 20:00] VITALS: BP 143/77
[2019-06-27] MEDS: NS w/KCl 20mEq 1000ml 1,000 ML IV SCH (20:20)
[2019-06-28] VITALS (13 sets, daily range): BP systolic 31–171; BP diastolic 18–96
--- NOTE | 2019-06-28 09:38 | Hematology/Onc Progress Note ---
Assessment/Plan Assessment/Plan Assessment and Recs: # Pancytopenia -- multiple etiologies could be related to underlying liver disease, medication-induced, infection versus viral syndrome versus underlying bone marrow cause, GIVEn coagulopathy concern for liver disease/ETOH also COVID+ + --> peripheral smear has been ordered and does not show significant abnormalities --> Medications have been reviewed --> Continue to monitor for improvement, trend cbc --> Hep panel and HIV both negative --> US abd: Coarsened hepatic echogenicity, consistent with hepatocellular disease. Splenomegaly++ --> reverse isolation if ANC is <2000 --> Give neupogen if ANC <1000 --> Transfuse if hgb <7, with 1 unit prbc --> consider bone marrow biopsy if no other causes are found --> FFP and platelets ordered --> plt trend 13-->12-->15 --> wbc trend: 1.8 --> abx: azithro # Coagulopathy is related to underlying liver disease --> consider vitk 10mg sq # Anemia of chronic disease v myeosuppression --> hx of dm 2 as well, poorly controlled -> trend hgb as needed # Pneumonia --> per id r/o cpvid 19 --> hypoxemia --> roommate tested ++ for covid19 # Tachypenia with cxr --> Diffuse infiltrates most likely COVID pneumonia # Tachycardia likely dehydrated The timing of this note does not necessarily reflect the time of the patient was seen. Greatly appreciate consultation. Subjective Allergies: Coded Allergies: No Known Allergies (Unverified , 02/26/17) Subjective 06/24 labs have been reviewed, meds noted, no bleeding or chills, us abd pending , given platelets, ffp and dw Dr. Hobson 06/25 sdu, us abd and labs reviewed, hiv negative, v mask, on plaq/azithro 06/27 on tele, temp 100.9, plt tx once afebrile, v mask Objective Objective Current Medications Medications (Trade) Dose Ordered Sig/Quynh Route PRN Reason Start Time Stop Time Status Last Admin Dose Admin Acetaminophen (Tylenol) 650 mg Q4H PRN ORAL Mild Pain (Pain Scale 1-3) 06/24/19 12:00 07/24/19 11:59 06/28/19 08:59 Acetaminophen (Tylenol) 650 mg Q4H PRN ORAL Temp >100.5 06/26/19 15:00 07/26/19 14:59 Azithromycin 500 mg/Dextrose 275 ml @ 275 mls/hr Q24H IV 06/24/19 14:00 06/29/19 13:59 06/27/19 14:00 Hydroxychloroquine Sulfate (Plaquenil) 200 mg 0900,2100 ORAL 06/26/19 21:00 06/28/19 21:01 06/28/19 08:58 Potassium Chloride/Sodium Chloride 1,000 ml @ 50 mls/hr Q20H IV 06/24/19 13:00 07/24/19 12:59 06/27/19 20:20 Last 24 Hour Vital Signs Date Time Temp Pulse Resp B/P (MAP) Pulse Ox O2 Delivery O2 Flow Rate FiO2 06/28/19 08:00 100.9 102 22 125/58 (80) 98 06/28/19 05:15 101.4 06/28/19 04:00 15.0 45 06/28/19 04:00 101.8 130 22 124/65 (84) 91 06/28/19 04:00 118 06/28/19 01:18 101.4 06/28/19 00:00 110 06/28/19 00:00 102.0 115 20 135/70 (91) 92 06/27/19 23:24 101.7 06/27/19 21:00 Venturi Mask 15.0 06/27/19 20:00 101.2 118 20 143/77 (99) 92 06/27/19 20:00 15.0 45 06/27/19 16:00 100.5 86 20 129/68 (88) 98 06/27/19 16:00 15.0 45 06/27/19 16:00 108 06/27/19 14:38 100.6 06/27/19 13:30 101.3 06/27/19 12:00 117 06/27/19 12:00 15.0 45 06/27/19 11:20 97.8 84 19 127/69 (88) 97 06/27/19 09:00 Venturi Mask 8.0 06/27/19 09:00 15.0 45 06/27/19 08:00 118 06/27/19 08:00 98.1 102 18 129/63 (85) 98 06/27/19 04:00 103 06/27/19 04:00 98.6 112 20 121/70 (87) 89 06/27/19 04:00 14.0 45 06/27/19 00:00 112 06/27/19 00:00 100.0 113 20 126/93 (104) 87 06/27/19 00:00 14.0 45 06/26/19 21:00 Venturi Mask 8.0 06/26/19 20:00 99.5 116 20 119/75 (90) 83 06/26/19 16:00 101 06/26/19 16:00 14.0 45 06/26/19 15:39 98.6 101 20 120/86 (97) 93 06/26/19 14:43 99.0 06/26/19 12:00 100.4 109 20 117/76 (90) 90 06/26/19 11:57 14.0 50 06/26/19 11:45 110 Intake and Output 06/27/19 06/28/19 19:00 07:00 Intake Total 140 ml Output Total 1800 ml Balance -1660 ml Intake Oral 140 ml Output Urine Total 1800 ml # Voids 3 2 # Bowel Movements 2 Labs Test 06/26/19 04:30 06/26/19 04:38 06/27/19 08:10 White Blood Count 1.8 K/UL (4.8-10.8) 2.1 K/UL (4.8-10.8) Red Blood Count 3.75 M/UL (4.70-6.10) 3.90 M/UL (4.70-6.10) Hemoglobin 11.7 G/DL (14.2-18.0) 12.4 G/DL (14.2-18.0) Hematocrit 34.4 % (42.0-52.0) 36.0 % (42.0-52.0) Mean Corpuscular Volume 92 FL (80-99) 92 FL (80-99) Mean Corpuscular Hemoglobin 31.2 PG (27.0-31.0) 31.8 PG (27.0-31.0) Mean Corpuscular Hemoglobin Concent 33.8 G/DL (32.0-36.0) 34.4 G/DL (32.0-36.0) Red Cell Distribution Width 12.8 % (11.6-14.8) 12.6 % (11.6-14.8) Platelet Count 15 K/UL (150-450) 20 K/UL (150-450) Mean Platelet Volume 11.6 FL (6.5-10.1) 12.9 FL (6.5-10.1) Neutrophils (%) (Auto) % (45.0-75.0) % (45.0-75.0) Lymphocytes (%) (Auto) % (20.0-45.0) % (20.0-45.0) Monocytes (%) (Auto) % (1.0-10.0) % (1.0-10.0) Eosinophils (%) (Auto) % (0.0-3.0) % (0.0-3.0) Basophils (%) (Auto) % (0.0-2.0) % (0.0-2.0) Differential Total Cells Counted 100 100 Neutrophils % (Manual) 69 % (45-75) 72 % (45-75) Lymphocytes % (Manual) 26 % (20-45) 19 % (20-45) Monocytes % (Manual) 5 % (1-10) 9 % (1-10) Eosinophils % (Manual) 0 % (0-3) 0 % (0-3) Basophils % (Manual) 0 % (0-2) 0 % (0-2) Band Neutrophils 0 % (0-8) 0 % (0-8) Platelet Estimate Decreased Decreased Platelet Morphology Normal Normal Red Blood Cell Morphology Normal Normal HIV (1&2) Antibody Rapid Negative (NEGATIVE) Sodium Level 136 MMOL/L (136-145) Potassium Level 4.3 MMOL/L (3.5-5.1) Chloride Level 105 MMOL/L (98-107) Carbon Dioxide Level 22 MMOL/L (21-32) Anion Gap 9 mmol/L (5-15) Blood Urea Nitrogen 11 mg/dL (7-18) Creatinine 0.9 MG/DL (0.55-1.30) Estimat Glomerular Filtration Rate > 60 mL/min (>60) Glucose Level 172 MG/DL (74-106) Calcium Level 7.9 MG/DL (8.5-10.1) Total Bilirubin 2.2 MG/DL (0.2-1.0) Direct Bilirubin 1.3 MG/DL (0.0-0.3) Aspartate Amino Transf (AST/SGOT) 58 U/L (15-37) Alanine Aminotransferase (ALT/SGPT) 30 U/L (12-78) Alkaline Phosphatase 147 U/L (46-116) Total Protein 6.7 G/DL (6.4-8.2) Albumin 2.1 G/DL (3.4-5.0) Globulin 4.6 g/dL Albumin/Globulin Ratio 0.5 (1.0-2.7) Hepatitis A IgM Antibody Negative (Negative) Hepatitis B Surface Antigen Negative (Negative) Hepatitis B Core IgM Antibody Negative (Negative) Hepatitis C Antibody <0.1 s/co ratio Height (Feet): 5 Height (Inches): 8.00 Weight (Pounds): 205 Objective Physical Exam: Vitals: reviewed General: NAD HEENT: nc, at Neck: supple Chest: clear breath sounds bilaterally ++ rhonchi, vmask++ Cardiovascular: RRR, no s3, s4 Neuro: alert and oriented Johan Melvin MD Jun 28, 2019 09:38
--- NOTE | 2019-06-28 10:35 | Pulmonology Progress Note ---
Assessment/Plan Assessment/Plan IMPRESSION: 1. Diabetes mellitus. 2. Bilateral pneumonia. 3. Confirmed COVID-19 pneumonia. 4. Hypoxemia. DISCUSSION: I will dc IV fluids. Needs to broaden abx; discussed with ID WIll obtain CXR and ABG Labs in AM Continue oxygen therapy with NRBM. I will follow carefully. Philip Ayon M.D. Subjective Interval Events: None new; doing poorly Constitutional: Reports: no symptoms HEENT: Repors: no symptoms Respiratory: Reports: no symptoms Cardiovascular: Reports: no symptoms Gastrointestinal/Abdominal: Reports: no symptoms Genitourinary: Reports: no symptoms Allergies: Coded Allergies: No Known Allergies (Unverified , 02/26/17) Objective Last 24 Hour Vital Signs Date Time Temp Pulse Resp B/P (MAP) Pulse Ox O2 Delivery O2 Flow Rate FiO2 06/28/19 09:29 100.0 06/28/19 08:00 100.9 102 22 125/58 (80) 98 06/28/19 04:00 15.0 45 06/28/19 04:00 101.8 130 22 124/65 (84) 91 06/28/19 04:00 118 06/28/19 01:18 101.4 06/28/19 00:00 110 06/28/19 00:00 102.0 115 20 135/70 (91) 92 06/27/19 23:24 101.7 06/27/19 21:00 Venturi Mask 15.0 06/27/19 20:00 101.2 118 20 143/77 (99) 92 06/27/19 20:00 15.0 45 06/27/19 16:00 100.5 86 20 129/68 (88) 98 06/27/19 16:00 15.0 45 06/27/19 16:00 108 06/27/19 14:38 100.6 06/27/19 13:30 101.3 06/27/19 12:00 117 06/27/19 12:00 15.0 45 06/27/19 11:20 97.8 84 19 127/69 (88) 97 Intake and Output 06/27/19 06/28/19 19:00 07:00 Intake Total 140 ml Output Total 1800 ml Balance -1660 ml Intake Oral 140 ml Output Urine Total 1800 ml # Voids 3 2 # Bowel Movements 2 General Appearance: no acute distress HEENT: normocephalic Respiratory/Chest: chest wall non-tender, lungs clear Cardiovascular: normal peripheral pulses, normal rate Abdomen: normal bowel sounds Current Medications Medications (Trade) Dose Ordered Sig/Quynh Route PRN Reason Start Time Stop Time Status Last Admin Dose Admin Acetaminophen (Tylenol) 650 mg Q4H PRN ORAL Mild Pain (Pain Scale 1-3) 06/24/19 12:00 07/24/19 11:59 06/28/19 08:59 Acetaminophen (Tylenol) 650 mg Q4H PRN ORAL Temp >100.5 06/26/19 15:00 07/26/19 14:59 Azithromycin 500 mg/Dextrose 275 ml @ 275 mls/hr Q24H IV 06/24/19 14:00 06/29/19 13:59 06/27/19 14:00 Hydroxychloroquine Sulfate (Plaquenil) 200 mg 0900,2100 ORAL 06/26/19 21:00 06/28/19 21:01 06/28/19 08:58 Potassium Chloride/Sodium Chloride 1,000 ml @ 50 mls/hr Q20H IV 06/24/19 13:00 07/24/19 12:59 06/27/19 20:20 Philip Ayon MD Jun 28, 2019 10:35
--- NOTE | 2019-06-28 11:40 | Diagnostic Imaging Report ---
EXAM: XR Chest, 1 View CLINICAL HISTORY: ABN CHST TECHNIQUE: Frontal view of the chest. COMPARISON: Chest x-ray dated 06/23/19 FINDINGS: Lungs: Interval significant worsening of the bilateral pulmonary interstitial and airspace opacities, concerning for worsening pneumonia, pulmonary edema, or ARDS. Pleural space: Unremarkable. The costophrenic angles are sharp. No visible pneumothorax. Heart: Unremarkable. No cardiomegaly. Mediastinum: Unremarkable. Bones/joints: Unremarkable. Tubes, lines and devices: Telemetry leads overlie the thorax. IMPRESSION: Interval significant worsening of the bilateral pulmonary interstitial and airspace opacities compared to the chest x-ray from 06/23/19, concerning for worsening pneumonia, pulmonary edema, or ARDS.
[2019-06-28] MEDS ORDERED: NS 275ml ONE (13:17)
[2019-06-28] MEDS ORDERED: Tubing Blood Filter IV ONE (13:17)
[2019-06-28] MEDS ORDERED: D5W 275ml ONE (13:17)
--- NOTE | 2019-06-28 13:25 | Infectious Diseases Prog Note ---
Assessment/Plan Assessment/Plan IMPRESSION: Sepsis Pancytopenia Pneumonia with COVID-19. Hypoxemic respiratory failure, worsening Diabetes mellitus. Hepatocellular disease Splenomegaly RECOMMENDATION: Continue with Hydroxychloroquine and Zithromax Add IV Vancomycin & Zosyn Negative HIV status & viral hepatitis panel Subjective ROS Limited/Unobtainable: No Constitutional: Reports: fever, other - Eg=[id number] Respiratory: Reports: shortness of breath, productive cough Gastrointestinal/Abdominal: Reports: no symptoms Genitourinary: Reports: no symptoms Allergies: Coded Allergies: No Known Allergies (Unverified , 02/26/17) Objective Vital Signs Last 24 Hour Vital Signs Date Time Temp Pulse Resp B/P (MAP) Pulse Ox O2 Delivery O2 Flow Rate FiO2 06/28/19 12:00 126 06/28/19 12:00 15.0 06/28/19 12:00 99.5 128 30 131/67 (88) 86 06/28/19 09:29 100.0 06/28/19 09:00 15.0 45 06/28/19 09:00 Venturi Mask 15.0 06/28/19 08:00 100.9 102 22 125/58 (80) 98 06/28/19 08:00 128 06/28/19 04:00 15.0 45 06/28/19 04:00 101.8 130 22 124/65 (84) 91 06/28/19 04:00 118 06/28/19 01:18 101.4 06/28/19 00:00 110 06/28/19 00:00 102.0 115 20 135/70 (91) 92 06/27/19 23:24 101.7 06/27/19 21:00 Venturi Mask 15.0 06/27/19 20:00 101.2 118 20 143/77 (99) 92 06/27/19 20:00 15.0 45 06/27/19 16:00 100.5 86 20 129/68 (88) 98 06/27/19 16:00 15.0 45 06/27/19 16:00 108 06/27/19 14:38 100.6 06/27/19 13:30 101.3 Height (Feet): 5 Height (Inches): 8.00 Weight (Pounds): 205 HEENT: mucous membranes moist, other Respiratory/Chest: lungs clear, other - oxygen by rebreathing mask Cardiovascular: tachycardia Abdomen: soft, non tender Extremities: no edema Neurologic/Psychiatric: alert, responsive Laboratory Tests Test 06/28/19 10:35 Arterial Blood pH 7.440 (7.350-7.450) Arterial Blood Partial Pressure CO2 23.9 mmHg (35.0-45.0) *L Arterial Blood Partial Pressure O2 30.4 mmHg (75.0-100.0) Arterial Blood HCO3 15.9 mmol/L (22.0-26.0) *L Arterial Blood Oxygen Saturation 57.8 % (95-100) *L Arterial Blood Base Excess -6.4 (-2-2) L [place] Test Positive Current Medications Medications (Trade) Dose Ordered Sig/Quynh Route PRN Reason Start Time Stop Time Status Last Admin Dose Admin Acetaminophen (Tylenol) 650 mg Q4H PRN ORAL Mild Pain (Pain Scale 1-3) 06/24/19 12:00 07/24/19 11:59 06/28/19 08:59 Acetaminophen (Tylenol) 650 mg Q4H PRN ORAL Temp >100.5 06/26/19 15:00 07/26/19 14:59 Azithromycin 500 mg/Dextrose 275 ml @ 275 mls/hr Q24H IV 06/28/19 21:00 07/03/19 20:59 Hydroxychloroquine Sulfate (Plaquenil) 200 mg 0900,2100 ORAL 06/26/19 21:00 06/28/19 21:01 06/28/19 08:58 Piperacillin Sod/ Tazobactam Sod 3.375 gm/Sodium Chloride 110 ml @ 27.5 mls/hr EVERY 8 HOURS IVPB 06/28/19 14:00 07/03/19 13:59 Vancomycin HCl (Vanco rx to dose) 1 ea DAILY PRN MISC Per rx protocol 06/28/19 11:45 07/28/19 11:44 Vancomycin/Sodium Chloride 275 ml @ 137.5 mls/ hr Q12HR@0600,1800 IVPB 06/28/19 18:00 07/03/19 17:59 Edmund Butler MD Jun 28, 2019 13:25
[2019-06-28] MEDS ORDERED: Piperacillin/Tazobactam 3.375 GM in NS 110 ML IVPB SCH (14:00)
--- NOTE | 2019-06-28 15:13 | Emergency Room Report ---
History of Present Illness General Chief Complaint: Upper Respiratory Illness Source: Patient Present Illness Allergies: Coded Allergies: No Known Allergies (Unverified , 02/26/17) COVID-19 Screening Contact w/high risk pt: Yes Recent Travel to affected area: No Experienced COVID-19 symptoms?: Yes COVID-19 symptoms experienced: Fever (T>100.4F or >38C), Cough Nursing Documentation-[facility] Past Medical History: No Stated History Hx Cardiac Problems: No Hx Diabetes: Yes Hx Cancer: No Hx Gastrointestinal Problems: No Hx Neurological Problems: No Physical Exam Vital Signs Date Time Temp Pulse Resp B/P (MAP) Pulse Ox O2 Delivery O2 Flow Rate FiO2 06/24/19 07:00 99.5 91 32 114/70 96 Nasal Cannula 2.0 06/25/19 00:00 40 Procedures Critical Care Time Critical Care Time i. I feel this is a highly complex case requiring extensive working including EKG/Rhythm strip, Xray/CT/US, Blood/urine lab work, repeat exams while in ED, and administration of strong opiates/narcotics for pain control, admission to hospital or close patient follow up. Total time: 30 min bedside evaluation and treatment excludes procedures (EKG). Reason for critical care: hypoxia, respirator disterss Possible complications: hypotension, hypertension, MT, shock, arrhythmias, metabolic acidosis, end organ damage, respiratory failure. Interventions: intubation Course: patient transferred to ICU for worsening hypoxia. CXR worsening. COVID + . i wore full PPE. wore PAPR. intubated using glidescope. O2 sats improved Consultations: nursing staff, EMS, family Performed by: Dr Cottrell Tolerated well condition = critical j. because of unstable vital signs this patient had a condition that could potentially threaten life or limb. I feel this is a critical patient who required my full attention while patient was considered critical. Total Critical Care Time excluding procedures was greater than 35 minutes Intubation Intubation : Consent: Emergent Intubation Method: orotracheal Tube Size (cm): 7.5 Medications: Etomidate, Rocuronium Breath Sounds after Intubation: equal Intubation Complications: no complications Post Intubation Xray: Yes Attempts: One Patient Tolerated: Well Complications: None Medical Decision Making Diagnostic Impression: Primary Impression: Suspected COVID-19 virus infection Additional Impression: Pneumonia ER Course Patient was transferred from telemetry to ICU with worsening hypoxia and respiratory distress. COVID positive. Worsening chest x-ray. I evaluated patient in ICU. In isolation. I wore full PPE. Patient intubated using glide scope. On reassessment O2 sats improved. Last Vital Signs Date Time Temp Pulse Resp B/P (MAP) Pulse Ox O2 Delivery O2 Flow Rate FiO2 06/28/19 14:30 149 37 171/96 (121) 66 06/28/19 12:00 15.0 06/28/19 12:00 99.5 06/28/19 09:00 45 06/28/19 09:00 Venturi Mask Status: improved Disposition: ADMITTED INPATIENT Condition: Critical Referrals: NOT CHOSEN IPA/,REFERRING (PCP) Claude Cottrell MD Jun 28, 2019 15:13
--- NOTE | 2019-06-28 15:54 | Diagnostic Imaging Report ---
EXAM: XR Chest, 1 View CLINICAL HISTORY: S/P INTUB TECHNIQUE: Frontal view of the chest. COMPARISON: Chest x-ray obtained earlier on 06/28/19 at 10:45 AM. FINDINGS: Lungs: Diffuse bilateral pulmonary opacities with near-complete opacification now seen in the left lung, worsened compared to the prior exam. Pleural space: Unremarkable. The costophrenic angles are sharp. No visible pneumothorax. Heart: Unremarkable. No cardiomegaly. Mediastinum: Unremarkable. Bones/joints: Unremarkable. Tubes, lines and devices: Endotracheal tube tip in the right mainstem bronchus. IMPRESSION: 1. Endotracheal tube tip in the right mainstem bronchus. Recommend repositioning. 2. Diffuse bilateral pulmonary opacities with near-complete opacification now seen in the left lung, worsened compared to the prior exam. <MYCVCSECTION> Communications: 06/28/19 16:21 Call Doctor Regarding Life Threatening Misplaced Tube or Line, called charge nurse Gaby 06/27 16:20 (-07:00)
[2019-06-28] MEDS ORDERED: Acetaminophen 650 MG SUPP RECTAL PRN (16:00)
[2019-06-28 16:33] LABS: HEMATOCRIT 41.5 % (42.0-52.0); HEMOGLOBIN 13.6 G/DL (14.2-18.0); MEAN CORPUSCULAR VOLUME 99 FL (80-99); PLATELET COUNT 39 K/UL (150-450); RED BLOOD COUNT 4.19 M/UL (4.70-6.10); RED CELL DISTRIBUTION WIDTH 14.8 % (11.6-14.8); WHITE BLOOD COUNT 13.4 K/UL (4.8-10.8)
[2019-06-28 16:41] LABS: ANION GAP 19 mmol/L (5-15); BLOOD UREA NITROGEN 18 mg/dL (7-18); CALCIUM 7.5 MG/DL (8.5-10.1); CARBON DIOXIDE 15 MMOL/L (21-32); CHLORIDE 103 MMOL/L (98-107); CREATININE 1.4 MG/DL (0.55-1.30); POTASSIUM 5.2 MMOL/L (3.5-5.1); SODIUM 137 MMOL/L (136-145)
[2019-06-28] MEDS ORDERED: Morphine Sulfate 2mg/ml Inj(IV/IM USE ONLY) IVP PRN (17:00)
[2019-06-28] MEDS ORDERED: Etomidate 40mg/20ml Inj IV ONE (17:32)
[2019-06-28] MEDS ORDERED: Rocuronium Bromide 50mg/5ml Inj IV ONE (17:32)
[2019-06-28] MEDS ORDERED: Sodium Bicarbonate 50ml Carp ONE (17:32)
[2019-06-28] MEDS ORDERED: Vancomycin 1.5gm/NS Premix IVPB SCH (18:00)
--- NOTE | 2019-06-28 18:15 | General Progress Note ---
Assessment/Plan Problem List: (1) Leukopenia ICD Codes: D72.819 - Decreased white blood cell count, unspecified SNOMED: 00559084, [id number] (2) Pneumonia ICD Codes: J18.9 - Pneumonia, unspecified organism SNOMED: 246029528 (3) Suspected COVID-19 virus infection ICD Codes: R68.89 - Other general symptoms and signs SNOMED: 306659460 Status: progressing Assessment/Plan: severe thrombocytopenia and leukopenia per dr vargas pna cxr got worse AML repositioned the ET tube pt coded and was not able to resuscitate contacted the dpoa and dpoa was informed of patients we had told family about the very poor prognosis from the beginning of admission given how ill he was so family was aware about his poor prognosis Subjective Allergies: Coded Allergies: No Known Allergies (Unverified , 02/26/17) Objective Last 24 Hour Vital Signs Date Time Temp Pulse Resp B/P (MAP) Pulse Ox O2 Delivery O2 Flow Rate FiO2 06/28/19 16:00 165 34 119/70 (86) 68 06/28/19 16:00 161 06/28/19 15:54 49 171/96 Endotracheal Tube 15.0 100 06/28/19 15:46 176 49 100 06/28/19 15:00 150 37 146/67 (93) 68 06/28/19 14:30 149 37 171/96 (121) 66 06/28/19 14:30 15.0 100 06/28/19 14:10 175 47 100 06/28/19 14:00 152 37 169/89 (115) 64 06/28/19 12:00 126 06/28/19 12:00 15.0 06/28/19 12:00 99.5 128 30 131/67 (88) 86 06/28/19 09:29 100.0 06/28/19 09:00 15.0 45 06/28/19 09:00 Venturi Mask 15.0 06/28/19 08:00 100.9 102 22 125/58 (80) 98 06/28/19 08:00 128 06/28/19 04:00 15.0 45 06/28/19 04:00 101.8 130 22 124/65 (84) 91 06/28/19 04:00 118 06/28/19 01:18 101.4 06/28/19 00:00 110 06/28/19 00:00 102.0 115 20 135/70 (91) 92 06/27/19 23:24 101.7 06/27/19 21:00 Venturi Mask 15.0 06/27/19 20:00 101.2 118 20 143/77 (99) 92 06/27/19 20:00 15.0 45 Intake and Output 06/27/19 06/28/19 19:00 07:00 Intake Total 140 ml Output Total 1800 ml Balance -1660 ml Intake Oral 140 ml Output Urine Total 1800 ml # Voids 3 2 # Bowel Movements 2 Laboratory Tests 06/28/19 10:35: Arterial Blood pH 7.440, Arterial Blood Partial Pressure CO2 23.9*L, Arterial Blood Partial Pressure O2 30.4*L, Arterial Blood HCO3 15.9*L, Arterial Blood Oxygen Saturation 57.8*L, Arterial Blood Base Excess -6.4L, [place] Test Positive 06/28/19 15:55: Arterial Blood pH 7.196*L, Arterial Blood Partial Pressure CO2 33.9L, Arterial Blood Partial Pressure O2 129.4H, Arterial Blood HCO3 12.8*L, Arterial Blood Oxygen Saturation 97.5, Arterial Blood Base Excess -14.2*L, [place] Test Positive 06/28/19 16:15: White Blood Count 13.4#H, Red Blood Count 4.19L, Hemoglobin 13.6L, Hematocrit 41.5L, Mean Corpuscular Volume 99, Mean Corpuscular Hemoglobin 32.4H, Mean Corpuscular Hemoglobin Concent 32.7, Red Cell Distribution Width 14.8, Platelet Count 39#L, Mean Platelet Volume 14.3H, Neutrophils (%) (Auto) , Lymphocytes (% ) (Auto) , Monocytes (%) (Auto) , Eosinophils (%) (Auto) , Basophils (%) (Auto) , Differential Total Cells Counted 100, Neutrophils % (Manual) 92H, Lymphocytes % (Manual) 4L, Monocytes % (Manual) 3, Eosinophils % (Manual) 0, Basophils % ( Manual) 0, Band Neutrophils 1, Toxic Granulation 2+, Platelet Estimate DecreasedL, Platelet Morphology Normal, Polychromasia 1+, Anisocytosis 1+, Macrocytosis 1+, Sodium Level 137, Potassium Level 5.2H, Chloride Level 103, Carbon Dioxide Level 15L, Anion Gap 19H, Blood Urea Nitrogen 18, Creatinine 1.4# H, Estimat Glomerular Filtration Rate 56.7, Glucose Level 175H, Calcium Level 7.5L, Triglycerides Level [Pending] Height (Feet): 5 Height (Inches): 8.00 Weight (Pounds): 205 Eitan Sharp MD Jun 28, 2019 18:15
--- NOTE | 2019-06-28 18:24 | Emergency Room Report ---
History of Present Illness General Chief Complaint: Upper Respiratory Illness Present Illness HPI I was called to ICU to intubate this patient who had been previously intubated for respiratory failure. Patient is COVID-19 positive. Allergies: Coded Allergies: No Known Allergies (Unverified , 02/26/17) COVID-19 Screening Contact w/high risk pt: Yes Recent Travel to affected area: No Experienced COVID-19 symptoms?: Yes COVID-19 symptoms experienced: Fever (T>100.4F or >38C), Cough Nursing Documentation-[facility] Past Medical History: No Stated History Hx Cardiac Problems: No Hx Diabetes: Yes Hx Cancer: No Hx Gastrointestinal Problems: No Hx Neurological Problems: No Review of Systems All Other Systems: limited - Patient is altered, in severe respiratory distress and not responsive Physical Exam Vital Signs Date Time Temp Pulse Resp B/P (MAP) Pulse Ox O2 Delivery O2 Flow Rate FiO2 06/24/19 07:00 99.5 91 32 114/70 96 Nasal Cannula 2.0 06/25/19 00:00 40 Sp02 EP Interpretation: abnormal - hypoxic, O2 sat 40's on NRB General Appearance: severe distress Head: normocephalic, atraumatic Eyes: bilateral eye normal inspection, bilateral eye PERRL ENT: other - Dry oral mucosa with cracked lips and dried blood around his lips and inside of his mouth Neck: normal inspection, full range of motion, thyroid normal Respiratory: respiratory distress, accessory muscle use, rhonchi Cardiovascular #1: tachycardia Gastrointestinal: normal inspection, non tender, soft Rectal: deferred Neurologic: other - Patient nonverbal and lethargic Psychiatric: other - Able to assess Skin: no rash Lymphatic: no adenopathy Procedures Critical Care Time Critical Care Time Total critical care time: Approximately 35 minutes. Due to a high probability of clinically significant, life threatening deterioration, the patient required my highest level of preparedness to intervene emergently and I personally spent this critical care time directly and personally managing the patient. This critical care time included obtaining a history; examining the patient; pulse oximetry; ordering and review of studies; arranging urgent treatment with development of a management plan; evaluation of patient's response to treatment ; frequent reassessment; and, discussions with other providers.This critical care time was performed to assess and manage the high probability of imminent, life-threatening deterioration that could result in multi-organ failure. It was exclusive of separately billable procedures and treating other patients and teaching time. Please see MDM section and the rest of the note for further information on patient assessment and treatment. CPR/Code Blue CPR/Code Blue Narrative After intubation patient's oxygen saturation was 92% on the ventilator. Patient 's tachycardia was improving. Approximately 5 minutes after intubation patient had loss of pulses and a CODE BLUE was called. CPR was initiated. Due to the COVID-19 patient remained on the ventilator. 3 rounds of epinephrine were given and 1 amp of sodium bicarbonate. At 1733 patient was pronounced . Patient continued to be in asystole throughout the code. Intubation Intubation : Consent: Emergent Intubation Method: orotracheal Tube Size (cm): 7.5 Medications: Etomidate, Rocuronium Breath Sounds after Intubation: equal Intubation Complications: no complications Attempts: One Patient Tolerated: Well Complications: None Medical Decision Making Diagnostic Impression: Primary Impression: Suspected COVID-19 virus infection Additional Impressions: Pneumonia Cardiac arrest Last Vital Signs Date Time Temp Pulse Resp B/P (MAP) Pulse Ox O2 Delivery O2 Flow Rate FiO2 06/28/19 16:00 165 34 119/70 (86) 68 06/28/19 15:54 Endotracheal Tube 15.0 100 06/28/19 12:00 99.5 Disposition: Condition: Critical Referrals: NOT CHOSEN IPA/,REFERRING (PCP) Melissa Farmer M.D. Jun 28, 2019 18:24
[2019-06-28] MEDS ORDERED: Azithromycin 500 MG in D5W 275 ML IV SCH (21:00)
--- NOTE | 2019-06-29 10:47 | Discharge Summary ---
Discharge Summary Discharge Summary _ SUMMARY DATE OF ADMISSION: 06/23/2019 DATE OF EXPIRATION: 06/28/2019 REASON FOR ADMISSION: 38 years old male with history of diabetes mellitus type 2 , presented with 3 days of fever, cough ,congestion ,and shortness of breath. Patient reported that his roommate was tested positive for coronavirus. He denied chest pain , dizziness or headache. He denied smoking. Upon evaluation patient was febrile with temperature 102.7 ,tachycardic and hypoxic with pulse oximetry of 89%. Chest x-ray demonstrated bilateral infiltrates, likely pneumonia. Laboratory work-up revealed WBC 2.2 , lymphocyte percentage 14. Troponin negative. Pro BNP 25. Glucose 128. Lactic acid 2.0. AST 73, ALT 41. Total bilirubin 1.1, direct bilirubin 0.6. Alkaline phosphatase 138. Urine toxicology screen was negative. Urinalysis revealed evidence of possible UTI. Patient was tested for COVID-19 due to direct contact with COVID positive patient. Patient was admitted for suspected COVID infection and pneumonia. CONSULTANTS: pulmonary Dr. Nany ZABALA specialist Dr. Edmund Raymundo shipyard supervisor/oncologist Dr. Melvin [facility] COURSE: Patient admitted to isolation bed and started on IV fluids and empiric antibiotics. Influenza screen was negative. Blood cultures were negative. Urine culture revealed mixed gram positive organisms. ERIC COVID by PCR was detected. Patient started on azithromycin and Plaquenil. Supplemental oxygen provided and titrated to keep oximetry above 92%. Nebulizing treatment with bronchodilator provided. Blood sugar was managed with sliding scale of insulin. Patient showed evidence of pancytopenia. Hepatitis panel was negative. HIV status was nonreactive. Abdominal ultrasound revealed splenomegaly. Coarsened hepatic echogenicity consistent with hepatocellular disease. Counts were closely monitored. Hemoglobin and hematocrit remained at baseline. Patient was significantly low platelets. Patient undergone transfusion of 1 unit of platelet-pheresis. Platelet count slightly increased from initial 14 up to 39. Patient received Granix x1 , and WBC went up to 13.4. On 06/27 patient condition worsened. He required 100% nonrebreathing mask. ABG showed significant hypoxemia even on 100% nonrebreathing mask. Patient was transferred urgently to ICU and intubated by emergency room physician. Chest x-ray postintubation demonstrated worsened findings with diffuse bilateral pulmonary opacities with near complete opacification in the left lung. Endotracheal tube tip was found in the right mainstem bronchus , recommended repositioning. Subsequently patient was reintubated .. CODE BLUE was initiated and conducted as per ACLS protocol. All attempts unfortunately appeared to be futile. Patient remained in asystole throughout the code. Patient was pronounced at 17:33 on 06/27 . Cause of : cardiopulmonary arrest due to COVID 19 pneumonia FINAL DIAGNOSES: Status post cardiopulmonary arrest Sepsis COVID-19 pneumonia Acute hypoxemic respiratory failure requiring intubation Pancytopenia Thrombocytopenia Anemia Hepatocellular disease Splenomegaly Diabetes mellitus I have been assigned to dictate discharge summary for this account. I was not involved in the patient's management. Modesta Sandoval REPRODUCTIVE HEALTHCARE ASSISTANT Jun 29, 2019 10:47
== END 2019-06-28 17:33 | disposition expired | DRG 720 ==
LOC: EMR 15:35 → 2W 16:10 → 2E 16:10 → UNDOADMIN 16:10 → EDBEDREQ 06-24 02:07 → 2E 06-24 03:40 → 2W 06-24 18:53 → 2E 06-26 18:06 → ICU 06-28 13:28
PROC: 30233R1 Transfusion of Nonautologous Platelets into Peripheral Vein, Percutaneous Approach (ICD-10-PCS; 2019-06-25)
PROC: 0BH17EZ Insertion of Endotracheal Airway into Trachea, Via Natural or Artificial Opening (ICD-10-PCS; principal; 2019-06-28)
PROC: 5A1935Z Respiratory Ventilation, Less than 24 Consecutive Hours (ICD-10-PCS; 2019-06-28)
PROC: 5A12012 Performance of Cardiac Output, Single, Manual (ICD-10-PCS; 2019-06-28)
DX: A41.89 Other specified sepsis (principal); J96.01 Acute respiratory failure with hypoxia; U07.1 COVID-19; J12.89 Other viral pneumonia; E11.9 Type 2 diabetes mellitus without complications; Z79.84 Long term (current) use of oral hypoglycemic drugs; D61.818 Other pancytopenia; D69.6 Thrombocytopenia, unspecified; K76.9 Liver disease, unspecified; R16.1 Splenomegaly, not elsewhere classified; D63.8 Anemia in other chronic diseases classified elsewhere; D68.4 Acquired coagulation factor deficiency; E86.0 Dehydration; F10.11 Alcohol abuse, in remission; K21.9 Gastro-esophageal reflux disease without esophagitis
CPT/HCPCS: 36415; 36600; 71045; 76700; 80048; 80053; 80307; 81003; 82248; 82550; 82553; 82803; 83605; 83880; 84478; 84484; 85007; 85025; 85610; 85730; 86140; 86703; 86705; 86709; 86710; 86803; 86850; 86900; 86901; 87040; 87086; 87340; 87635; 93005; 94003; 96361; 96365; 96368; 99285; J0171; J7030